=== PATIENT | female | born 1980 | race Caucasian/White ===

== ENCOUNTER 2020-08-13 19:11 | Emergency (ER) | payer OTHER, SELFPAY ==
--- NOTE | ~2020-08-13 | XR_ITS ---
EXAMINATION: XR KNEE, LEFT CLINICAL INFORMATION: Fall with injury COMPARISON: None TECHNIQUE: Four views of the left knee. FINDINGS: Osseous alignment is anatomic. No acute fracture is seen. Joint spaces appear maintained. No significant effusion. XR/XR knee LT 4V IMPRESSION: No acute findings identified.
--- NOTE | ~2020-08-13 | XR_ITS ---
EXAMINATION: XR WRIST, RIGHT CLINICAL INFORMATION: Fall with injury COMPARISON: None TECHNIQUE: Four views of the right wrist. FINDINGS: Osseous alignment is anatomic. No acute fracture is seen. No significant focal soft tissue abnormality identified. XR/XR wrist RT 2V IMPRESSION: No acute findings identified.
[2020-08-13 20:09] VITALS: BP 115/77; PULSE 94; RESP 20; TEMP 37; O2SAT 98; BMI 32.9
[2020-08-13] MEDS: Acetaminophen 325 MG TABLET 650 MG PO (22:41)
--- NOTE | 2020-08-13 22:43 | PC.NURSE ---
Pt ambulating to the desk, requesting medication for pain to left armpit and a hot pack. Pt medicated with Tylenol per request, provided with a hot pack.
[2020-08-14] MEDS: Lidocaine HCl 2 % MPF 5 ML VIAL SUBCUT (00:27)
--- NOTE | 2020-08-14 01:13 | ED_ITS ---
HPI - Skin/Abscess/Foreign Bdy General Chief complaint: Skin/Abscess/Foreign Body Stated complaint: infection Source: patient Mode of arrival: ambulatory Limitations: no limitations History of Present Illness HPI narrative: 40-year-old female presents with abscess under the left axilla, reports right wrist and left knee pain as well. She does not describe any fevers or chills, but states it is really difficult for her to lower her arm because of abscesses. complaint: abscess/boil Onset (ago): day(s) Tetanus up to date: no Severity: moderate Severity scale (1-10): 7 Quality: aching and constant Pain Consistency: constant Relieving factors: none Exacerbating factors: movement Context: none Associated symptoms: denies other symptoms Treatments prior to arrival: attempted to drain pus at home Related Data Previous Rx's Medication Instructions Recorded doxycycline monohydrate 100 mg PO BID 10 Days #20 cap 08/14/20 oxycodone 5 mg PO Q8H PRN #7 cap 08/14/20 Allergies Allergy/AdvReac Type Severity Reaction Status Date / Time codeine [CODEINE] Allergy Unknown UNKNOWN Unverified 08/13/20 20:14 Review of Systems Review of Systems: Constitutional: No Fever, No Chills ENT/Mouth: No Ear Pain, No Hoarseness, No sore throat Eyes: No Eye Pain, No Swelling, No Redness, No Foreign Body Cardiovascular: No Chest Pain, No SOB Respiratory: No Cough, No Dyspnea Gastrointestinal: No Nausea, No Vomiting, No Diarrhea, No abdominal Pain Genitourinary: No Dysuria, No Hematuria Musculoskeletal: positive right wrist and left knee pain, No Myalgias, No Joint Swelling Skin: Positive abscess to the left axilla with cellulitis, No Skin lacerations, No rash Neuro: No Weakness, No Numbness, No Paresthesias, No Loss of Consciousness, No Dizziness, No Headache Psych: No Anxiety/Panic, No Depression Heme/Lymph: no easy bruising, no Lymphadenopathy Endocrine: No Polyuria, No Polydipsia Yes all other systems are reviewed and are negative PMFSH Past Medical History Attestation statement: The following information was validated with the patient. Source: old records reviewed Medical History (Updated 08/14/20 @ 01:22 by Komal Howard NP) No known health problems Social History Social History Smoked in Last 30 Days: No Advance Directives: No Advance Directives Information Provided: No Physical Exam Vital Signs: Vital Signs: Last Vital Signs Temp 98.6 F 08/13/20 20:09 Pulse 94 08/13/20 20:09 Resp 20 08/13/20 20:09 BP 115/77 08/13/20 20:09 Pulse Ox 98 08/13/20 20:09 Body Mass Index 32.9 Appearance: Alert. Oriented X3. No acute distress. Eyes: Pupils equal, round and reactive to light. ENT: Pharynx normal. Neck: Normal inspection. Neck supple. CVS: Normal heart rate and rhythm. Pulses normal. Respiratory: No respiratory distress. Breath sounds normal. Abdomen: Soft and nontender. Skin: Approximately 5 cm area of induration and cellulitis to the left axilla, Skin warm and dry. Normal skin color. Normal skin turgor. Extremities: No lower extremity edema. Neuro: No motor deficit. No sensory deficit. Course Course Course Narrative: 40-year-old female presents with cellulitis and abscess under the left axilla. Also has incidental complaints of right wrist and right knee pain. Please refer to procedure note for full details. Prepped and draped in sterile fashion, 2 incisions made to the left axilla with positive purulent drainage. Dr Luna's in to evaluate, as patient does have additional indurated areas, under ultrasound guidance area consistent with cellulitis and no further fluid pockets are visualized for drainage. Will treat doxycycline p.o.. X-rays to the right wrist and left knee are negative for acute findings. Patient verbalized understanding of and agrees to plan of care discharge home. Procedures Abscess I/D Site: upper extremity Side (if applicable): left Local Anesthetic: lidocaine 2% Amount of anesthesia used (mL): 4 Technique: incised with blade and ultrasound guided Amount of fluid expressed (mL): 5 Sent for culture/gram staining?: No Irrigation: No Packing used?: none MDM - Skin/Abscess/Foreign Bdy Differential Diagnosis Differential diagnosis: Likely abscess of skin or subcutaneous tissue and cellulitis Medical Records Attestation: I reviewed the patient's medical records. Imaging Data Wrist and knee x-ray: Attestation: I personally reviewed and interpreted this imaging study as follows: Radiologist's impression: EXAMINATION: XR KNEE, LEFT CLINICAL INFORMATION: Fall with injury COMPARISON: None TECHNIQUE: Four views of the left knee. FINDINGS: Osseous alignment is anatomic. No acute fracture is seen. Joint spaces appear maintained. No significant effusion. XR/XR knee LT 4V IMPRESSION: No acute findings identified. EXAMINATION: XR WRIST, RIGHT CLINICAL INFORMATION: Fall with injury COMPARISON: None TECHNIQUE: Four views of the right wrist. FINDINGS: Osseous alignment is anatomic. No acute fracture is seen. No significant focal soft tissue abnormality identified. XR/XR wrist RT 2V IMPRESSION: No acute findings identified Discharge Plan Discharge Clinical Impression: Suppurative hidradenitis, Incisional abscess Cellulitis Qualifiers: Site of cellulitis: extremity Site of cellulitis of extremity: axilla Laterality: left Qualified Code(s): L03.112 - Cellulitis of left axilla Abscess of skin or subcutaneous tissue Qualifiers: Site of cutaneous abscess: extremity Site of cutaneous abscess of extremity: axilla Laterality: left Qualified Code(s): L02.412 - Cutaneous abscess of left axilla Patient Disposition: Home, Self-Care Instructions: Cellulitis (ED), Abscess (ED), Abscess Incision and Drainage (DC) , Hidradenitis Suppurativa (ED) Additional Instructions: You were evaluated for swelling and pain in the left axilla. We drained 2 pus pockets. Please keep the Steri-Strips in place. They will fall off on their own. Please take antibiotics as directed. We prescribed tramadol for pain management. This medication is a narcotic and has high risk for addiction and abuse. Do not drive or operate machinery while taking this medication. X-ray of the wrist is negative for acute findings or fracture, x-ray of the knee is negative for acute findings fracture or effusion. Thank you for choosing this emergency department for evaluation. Please follow-up with primary care physician as needed. Return to the emergency department for any new, concerning, or worsening symptoms. Prescriptions: New doxycycline monohydrate 100 mg capsule 100 mg PO BID 10 Days Qty: 20 RF: 0 oxycodone 5 mg capsule 5 mg PO Q8H PRN (Reason: pain) Qty: 7 RF: 0 Interventions: ED Discharge Assessment Last Done: 08/14/20 01:40 Discharge Date/Time: 08/14/20 01:43
== END 2020-08-14 01:43 | disposition home or self-care (01) ==
PROVIDERS: Emergency Provider Emergency Medicine
DX: L73.2 Hidradenitis suppurativa (principal); L02.412 Cutaneous abscess of left axilla; L03.112 Cellulitis of left axilla; M25.531 Pain in right wrist; M25.562 Pain in left knee
CPT/HCPCS: 10061; 73100; 73564; 90471; 90715; 99284

== ENCOUNTER 2021-03-13 06:19 | Emergency (ER) | payer OTHER, SELFPAY ==
--- NOTE | ~2021-03-13 | XR_ITS ---
EXAMINATION: XR FOOT, LEFT CLINICAL INFORMATION: Swelling COMPARISON: None TECHNIQUE: AP, lateral, and oblique views of the left foot. FINDINGS: The bones and soft tissues are normal. No fracture. Alignment is anatomic. Joint spaces are maintained. XR/XR foot LT min 3V IMPRESSION: Normal left foot.
[2021-03-13 07:01] VITALS: BP 92/61; PULSE 71; RESP 16; TEMP 36.6; O2SAT 98; BMI 31.1
--- NOTE | 2021-03-13 07:18 | ED.EXTPRO ---
HPI - Extremity Problem General Chief complaint: Extremity Problem Stated complaint: swollen l left Time Seen by Provider: 03/13/21 06:53 Source: patient Mode of arrival: ambulatory Limitations: no limitations History of Present Illness MD Complaint: extremity pain and extremity swelling Onset (ago): day(s) (3) Pain Consistency: other (improving) Location: left and other (foot) Quality: aching Radiation: none Relieving factors: immobilization and rest Exacerbating factors: weight bearing and walking Associated symptoms: other (skin looks red) Context: other (outside a lot unsure if she got bit by insect, denies trauma) Related Data Previous Rx's Medication Instructions Recorded doxycycline monohydrate 100 mg 100 mg PO BID 10 Days #20 cap 08/14/20 capsule oxycodone 5 mg capsule 5 mg PO Q8H PRN #7 cap 08/14/20 cephalexin 500 mg capsule 500 mg PO QID 7 Days #28 cap 03/13/21 Allergies Allergy/AdvReac Type Severity Reaction Status Date / Time codeine [CODEINE] Allergy Unknown UNKNOWN Unverified 08/13/20 20:14 Review of Systems Review of Systems: Constitutional : No Fever, No Chills ENT/Mouth : No Ear Pain, No Hoarseness, No sore throat Eyes: No Eye Pain, No Swelling, No Redness, No Foreign Body Cardiovascular : No Chest Pain, No SOB Respiratory : No Cough, No Dyspnea Gastrointestinal : No Nausea, No Vomiting, No Diarrhea, No abdominal Pain Genitourinary : No Dysuria, No Hematuria Musculoskeletal : positive joint pain, No Myalgias, pos Joint Swelling Skin : No Skin lacerations, pos rash Neuro : No Weakness, No Numbness, No Loss of Consciousness, No Dizziness, No Headache PMFSH Past Medical History Attestation statement: The following information was validated with the patient. Medical History No known health problems Social History Social History (Updated 03/13/21 @ 07:21 by Pamlea Morse DO) Patient Tobacco Use Status: Current everyday Tobacco user Advance Directives: No Advance Directives Information Provided: Yes Patient : No Physical Exam Vital Signs: Vital Signs: Last Vital Signs Temp 97.8 F 03/13/21 07:01 Pulse 71 03/13/21 07:01 Resp 16 03/13/21 07:01 BP 92/61 03/13/21 07:01 Pulse Ox 98 03/13/21 07:01 Body Mass Index 31.1 Appearance: Alert. Oriented X3. No acute distress. Eyes: Pupils equal, round and reactive to light. ENT: Pharynx normal. Neck: Normal inspection. Neck supple. CVS: Normal heart rate and rhythm. Pulses normal. Respiratory: No respiratory distress. Breath sounds normal. Abdomen: Soft and non-tender. Skin: Skin warm and dry. Normal skin color. Extremities: L foot swelling on dorsum mild with mild faint erythema, there is an excoriated insect bite but no fluctuance / mass / drainage noted. NV intact, full ROM of ankle without pain, no calf pain or swelling Neuro: Oriented X 3. No motor deficit. No sensory deficit. Course Course Course Narrative: negative xrays MDM - Extremity (Nontraumatic) MDM Narrative Medical decision making narrative: 40 yo female with no sig PMH here with L foot pain and swelling that has improved. She has been outside a lot and initially the foot was very swollen ? trauma vs insect bite with localized reaction. She is NV intact very mild erythema consistent with cellulitis. She has no systemic symptoms and full ROM of joint doubt septic joint at this time. Xrays and PO cephalexin ordered. Discharge Plan Discharge Clinical Impression: Cellulitis Qualifiers: Site of cellulitis: extremity Site of cellulitis of extremity: lower extremity Laterality: left Qualified Code(s): L03.116 - Cellulitis of left lower limb Patient Disposition: Home, Self-Care Instructions: Cellulitis (ED) Additional Instructions: return to ED for any worsening symptoms or concerns xrays negative for fracture Prescriptions: New cephalexin 500 mg capsule 500 mg PO QID 7 Days Qty: 28 RF: 0 No Action doxycycline monohydrate 100 mg capsule 100 mg PO BID 10 Days Qty: 20 RF: 0 oxycodone 5 mg capsule 5 mg PO Q8H PRN (Reason: pain) Qty: 7 RF: 0 Stand Alone Forms: Work/School Release
[2021-03-13] MEDS: cephALEXin 500 MG CAPSULE PO (07:24)
--- NOTE | 2021-03-13 07:45 | PC.NURSE ---
pt alert and oriented, vss, pt states her right foot has been swollen for two days now, she denies any injuries or falls. denies fever or chills, no sob/dizziness/headache. no other symptoms reported.
[2021-03-13 08:20] VITALS: BP 126/79; PULSE 73; RESP 16; TEMP 36.8; O2SAT 99
--- NOTE | 2021-03-13 08:20 | PC.NURSE ---
pt's x-ray clear. pt medically cleared for discharge.
== END 2021-03-13 08:30 | disposition home or self-care (01) ==
PROVIDERS: Emergency Provider Emergency Medicine; PCP Internal Medicine
DX: L03.116 Cellulitis of left lower limb (principal); M79.672 Pain in left foot; Z79.899 Other long term (current) drug therapy
CPT/HCPCS: 73630; 99283; 99284

== ENCOUNTER 2021-10-25 02:38 | Emergency (ER) | payer OTHER, SELFPAY ==
--- NOTE | ~2021-10-25 | XR_ITS ---
EXAMINATION: XR HIP, LEFT CLINICAL INFORMATION: Unable to bear weight COMPARISON: None TECHNIQUE: Two views of the left hip. FINDINGS: Visualized portion of the proximal left femur demonstrate no fracture. Left femoral head is well-seated within the acetabulum. Left femoral acetabular joint space is maintained. The pelvic ring is intact. The right hip is grossly unremarkable. Sacroiliac joints are symmetric. XR/XR hip LT min 2V IMPRESSION: Unremarkable radiographs of the left hip.
[2021-10-25 03:08] VITALS: BP 96/60; PULSE 67; RESP 16; TEMP 36.6; O2SAT 97; BMI 29.2
--- NOTE | 2021-10-25 07:31 | ED.LOWEXIN ---
HPI - Extremity Injury (Lower) General Chief Complaint: Extremity Injury, Lower Stated Complaint: Hip pain; no injury Time Seen by Provider: 10/25/21 07:29 Source: patient and family (Significant other) Mode of arrival: ambulatory Limitations: no limitations History of Present Illness HPI Narrative: 41-year-old female came in for evaluation of left hip pain. Patient was stretching her left leg over her right knee when she had a sudden onset of left hip pain, pain is severe 10/10 described as dull aching pain, pain with movement or bearing weight or try to stretch in left have. Patient did not try any pain medication, pain is constant with no radiation. Declined any trauma or strenuous activity. No fever or chills Related Data Previous Rx's Medication Instructions Recorded doxycycline monohydrate 100 mg 100 mg PO BID 10 Days #20 cap 08/14/20 capsule oxycodone 5 mg capsule 5 mg PO Q8H PRN #7 cap 08/14/20 cephalexin 500 mg capsule 500 mg PO QID 7 Days #28 cap 03/13/21 cyclobenzaprine 10 mg tablet 10 mg PO BEDTIME PRN #10 tab 10/25/21 ibuprofen 600 mg tablet 600 mg PO TID PRN #30 tab 10/25/21 Allergies Allergy/AdvReac Type Severity Reaction Status Date / Time codeine [CODEINE] Allergy Unknown UNKNOWN Unverified 08/13/20 20:14 Review of Systems Review of Systems: All other systems are reviewed and are negative Constitutional: Reports as per HPI and Reports no additional constitutional complaints Eyes: Reports as per HPI and Reports no additional eye complaints Reports system reviewed and no additional complaints, except as documented Cardiovascular: Reports as per HPI and Reports no additional cardiovascular complaints Respiratory: Reports as per HPI and Reports no additional respiratory complaints Gastrointestinal: Reports as per HPI and Reports no additional gastrointestinal complaints Genitourinary: Reports no additional female genitourinary complaints Musculoskeletal: Reports no additional musculoskeletal complaints Skin/Breast: Reports system reviewed and no additional complaints, except as docu Psychiatric: Reports no additional psychiatric complaints Endocrine: Reports no additional endocrine complaints Hematologic/Lymphatic: Reports no additional hematologic/lymphatic complaints Allergic/Immunologic: Reports no additional allergic/immunologic complaints Reports system reviewed and no additional complaints, except as documented and Reports Abnormal speech present [facility] Past Medical History Medical History No known health problems Social History Social History Patient Tobacco Use Status: Current everyday Tobacco user Advance Directives: No Advance Directives Information Provided: No Physical Exam Vital Signs: Vital Signs: Last Vital Signs Temp 97.8 F 10/25/21 03:08 Pulse 67 10/25/21 03:08 Resp 16 10/25/21 03:08 BP 96/60 10/25/21 03:08 Pulse Ox 97 10/25/21 03:08 BMI result Body Mass Index 29.2 Vital signs have been reviewed as appeared to be correct. Blood pressure normal. Heart rate normal. Respiration rate normal. Temperature normal. Oxygen saturation normal. Appearance: Alert. Oriented X3. No acute distress. Head: Normal external exam. Normocephalic. Atraumatic. No Lerma signs noted. No raccoon eyes noted Eyes: PERRLA. EOMI. Conjunctiva and sclera normal. Eyelids normal. ENT: TM's Normal. Pharynx normal. Uvula midline. Moist mucous membranes. No trismus noted. No drooling noted. No muffled voice noted. Neck: Normal inspection. Neck supple. FROM. No adenopathy. Thyroid Normal. No meningeal signs. No neck mass noted. CVS: Normal heart rate and rhythm. Heart sound normal. No murmurs noted. Pulses normal throughout. Respiratory: No respiratory distress. Painless inspiration. Breath sounds normal. No wheezes/rales/rhonchi noted. Chest nontender. No accessory muscle usage noted or decreased air movement noted. Abdomen: Soft and nontender. Bowel sounds normal in all 4 quadrants. No distention noted. No organomegaly noted. No visible injury noted. Back: No CVA tenderness. Full range of motion noted. Skin: Skin warm and dry. Normal skin color. Normal skin turgor. No rashes/lesions/lacerations noted. Extremities: No lower extremity edema. Extremities exhibit normal range of motion. Extremities nontender. Point of tenderness over left inguinal ligament but no step-off, no swelling. Neuro: Oriented X 3. Cranial nerve exam: II-XII are grossly intact No motor deficit. No sensory deficit. Reflexes normal. Course Course Course Narrative: Assessment and plan. 41-year-old female, left inguinal ligament strain, no fracture on the x-ray. Patient feels better with NSAIDs and muscle relaxant. MDM - Extremity Injury (Lower) Imaging Data Left hip x-ray: Attestation: I personally reviewed and interpreted this imaging study as follows: Radiologist's impression: Visualized portion of the proximal left femur demonstrate no fracture. Left femoral head is well-seated within the acetabulum. Left femoral acetabular joint space is maintained. The pelvic ring is intact. The right hip is grossly unremarkable. Sacroiliac joints are symmetric. Discharge Plan Discharge Clinical Impression: Ilio-inguinal strain Patient Disposition: Home, Self-Care Instructions: Muscle Strain (ED) Prescriptions: New cyclobenzaprine 10 mg tablet 10 mg PO BEDTIME PRN (Reason: muscle spasm) Qty: 10 0RF ibuprofen 600 mg tablet 600 mg PO TID PRN (Reason: pain) Qty: 30 0RF No Action doxycycline monohydrate 100 mg capsule 100 mg PO BID 10 Days Qty: 20 0RF oxycodone 5 mg capsule 5 mg PO Q8H PRN (Reason: pain) Qty: 7 0RF cephalexin 500 mg capsule 500 mg PO QID 7 Days Qty: 28 0RF Referrals: Physician,Unknown J [Primary Care Provider] -
[2021-10-25] MEDS: Cyclobenzaprine HCl 10 MG TABLET PO (07:59)
[2021-10-25] MEDS: Ibuprofen 600 MG TABLET PO (08:00)
[2021-10-25] MEDS: oxyCODONE HCl Immed Release 5 MG TABLET PO (09:17)
== END 2021-10-25 09:29 | disposition home or self-care (01) ==
PROVIDERS: Emergency Provider Emergency Medicine
DX: S76.812A Strain of other specified muscles, fascia and tendons at thigh level, left thigh, initial encounter (principal); X50.9XXA Other and unspecified overexertion or strenuous movements or postures, initial encounter; Y93.9 Activity, unspecified; Y92.9 Unspecified place or not applicable; Y99.9 Unspecified external cause status
CPT/HCPCS: 73502; 99283

== ENCOUNTER 2022-03-26 21:23 | Emergency (ER) | payer OTHER, SELFPAY ==
[2022-03-26 21:38] VITALS: BP 102/66; PULSE 74; RESP 20; TEMP 36.9; O2SAT 98; BMI 27.4
--- NOTE | 2022-03-26 22:38 | ED.GENADULT ---
HPI - General Adult General Chief complaint: General Medical Stated complaint: Stye in eye Time Seen by Provider: 03/26/22 22:16 Source: patient Mode of arrival: ambulatory Limitations: no limitations History of Present Illness HPI narrative: This is a 41-year-old female presenting to the emergency department with complaints of painful stye to the left upper eyelid. Patient tells me that this has been going on for a week or so progressively worsening, she tells me this morning she noted a white head on the stat eye and she tried to pop it, she reports some discomfort to the area. She tells me she gets these repetitively. She reports that she has seen an eye doctor in the past for this. She denies fevers, chills, chest pain, shortness of breath, painful eye movements, vision changes, headache, dizziness, weakness. Related Data Previous Rx's Medication Instructions Recorded doxycycline monohydrate 100 mg 100 mg PO BID 10 days #20 caps 08/14/20 capsule oxycodone 5 mg capsule 5 mg PO Q8H PRN pain #7 caps 08/14/20 cephalexin 500 mg capsule 500 mg PO QID 7 days #28 caps 03/13/21 cyclobenzaprine 10 mg tablet 10 mg PO BEDTIME PRN muscle spasm 10/25/21 #10 tabs ibuprofen 600 mg tablet 600 mg PO TID PRN pain #30 tabs 10/25/21 erythromycin 5 mg/gram (0.5 %) eye 1 appl ophthalmic-Left DAILY #3.5 03/26/22 ointment grams Allergies Allergy/AdvReac Type Severity Reaction Status Date / Time codeine [CODEINE] Allergy Unknown Hives Verified 03/26/22 21:44 Review of Systems Review of Systems: Constitutional : No Weight loss, No Fever, No Chills, No Fatigue, No Malaise ENT/Mouth : No sore throat, No Rhinorrhea, + Stye Eyes: No Eye Pain, No Swelling, No Redness Cardiovascular : No Chest Pain, No SOB, No Dyspnea on Exertion, No Orthopnea, No Edema, No Palpitations Respiratory : No Cough, No Sputum, No Wheezing Gastrointestinal : No Nausea, No Vomiting, No Diarrhea, No Constipation, No abdominal Pain, No Hematochezia, No Melena Genitourinary : No Dysuria, No Urinary Frequency, No Hematuria, Musculoskeletal : No joint pain, No Myalgias, No Joint Swelling Skin : No Skin Lesions, No rash Neuro : No Weakness, No Numbness, No Dizziness, No Headache All other systems reviewed and are negative Yes all other systems are reviewed and are negative [facility] Past Medical History Attestation statement: The following information was validated with the patient. Source: old records reviewed and nursing notes reviewed Medical History No known health problems Social History Social History Patient Tobacco Use Status: Current everyday Tobacco user Advance Directives: No Advance Directives Information Provided: No Patient : No Physical Exam ED Vital Signs: Vital Signs - 24 hr 03/26/22 21:38 Temperature 98.5 F Pulse Rate 74 Respiratory Rate 20 Blood Pressure 102/66 Pulse Oximetry 98 Oxygen Delivery Method Room Air BMI result Body Mass Index 27.4 Vital signs stable Appearance: Alert.? Oriented X3.? No acute distress.? Head: Normocephalic, atraumatic, no step-offs or deformities Eyes: Pupils equal, round and reactive to light.?+ external hordeolum to left upper eyelid. EOMI pain free. CVS: Normal heart rate and rhythm.? Pulses normal.? Respiratory: No respiratory distress.? Breath sounds normal.? Abdomen: Soft and nontender.? Skin: Skin warm and dry.? Normal skin color.? Normal skin turgor.? Extremities: No lower extremity edema.? No calf ttp. 5/5 strength to bilateral upper and lower extremities Neuro: Oriented X 3.? No motor deficit.? No sensory deficit. Course Reevaluation(s) Reevaluation #1: At this time patient will be discharged home with erythromycin ointment, advised to return with new or worsening symptoms. Educated on worrisome signs and symptoms and when to return. Advised to follow-up with the eye doctor if this continues. Comfortable discharge home with prompt PCP and Ophthalmology follow-up of necessary Time: 22:41 Medical Decision Making [facility] Narrative Medical decision making narrative: [id number] 41-year-old female presents with stye to the left upper eyelid. Reports she gets these often. Denies any pain with eye movement, eye pain, vision changes, headache or dizziness. Physical examination with hordeolum to the left upper eye. Extraocular movements intact him pain-free, no nystagmus. Pupils equal round reactive to light. Likely hordeolum, unlikely chalazion. No signs of wet macular degeneration, acute angle closure glaucoma, orbital or periorbital cellulitis. No signs of foreign body. Plan at this time is to obtain visual acuity. Medical Records Medical records reviewed: Yes I reviewed the patient's medical records. Lab Data Lab results reviewed: Yes I reviewed the patient's lab results. Critical Care Time Critical Care Time Critical Care Time: No Discharge Plan Discharge Clinical Impression: Hordeolum Patient Disposition: Home, Self-Care Instructions: Gunner (ED) Additional Instructions: Take your medications as prescribed. If you were prescribed antibiotics today, it is important that you take your medication to their entirety, do not skip any doses, do not finish them early. Follow-up with your primary care provider this week. Follow-up with eye doctor if needed Return to the emergency department with new or worsening symptoms. Such as fevers, chills, chest pain, shortness of breath, nausea, vomiting, dizziness, headache, vision changes, lethargy, or redness around eye, painful eye movements, pain dye, changes in vision or blurred vision, double vision In case of emergency call 911 Apply warm compresses to the area. Apply antibiotic as prescribed. Please throw away all makeup that you have used on your eyes. Prescriptions: New erythromycin 5 mg/gram (0.5 %) ointment 1 appl ophthalmic-Left DAILY Qty: 3.5 0RF No Action doxycycline monohydrate 100 mg capsule 100 mg PO BID 10 Days Qty: 20 0RF oxycodone 5 mg capsule 5 mg PO Q8H PRN (Reason: pain) Qty: 7 0RF cephalexin 500 mg capsule 500 mg PO QID 7 Days Qty: 28 0RF cyclobenzaprine 10 mg tablet 10 mg PO BEDTIME PRN (Reason: muscle spasm) Qty: 10 0RF ibuprofen 600 mg tablet 600 mg PO TID PRN (Reason: pain) Qty: 30 0RF Referrals: Bethany Moise MD [Primary Care Provider] - 2 days Stand Alone Forms: Work/School Release Interventions: ED Discharge Assessment Last Done: 03/26/22 22:51 Discharge Date/Time: 03/26/22 23:00
== END 2022-03-26 23:00 | disposition home or self-care (01) ==
PROVIDERS: Emergency Provider Emergency Medicine; PCP Internal Medicine
DX: H00.014 Hordeolum externum left upper eyelid (principal); Z79.899 Other long term (current) drug therapy; F17.200 Nicotine dependence, unspecified, uncomplicated; Z71.6 Tobacco abuse counseling
CPT/HCPCS: 99282; 99283

== ENCOUNTER 2022-11-09 13:26 | Emergency (ER) | payer OTHER, SELFPAY | END 2022-11-09 14:06 | disposition left against medical advice (07) | PROVIDERS: Emergency Provider Emergency Medicine; PCP Internal Medicine | DX: R10.9 Unspecified abdominal pain (principal) ==

== ENCOUNTER 2023-03-19 22:58 | Emergency (ER) | payer OTHER, SELFPAY ==
[2023-03-19 23:18] VITALS: BP 102/63; PULSE 88; RESP 22; TEMP 37.2; O2SAT 95; BMI 27.1
[2023-03-19 23:58] VITALS: PULSE 84; RESP 16; O2SAT 98; O2SAT 99
--- NOTE | 2023-03-20 00:31 | ED.URI ---
HPI - URI/Sore Throat General Chief Complaint: Upper Respiratory Symptoms Stated Complaint: Difficulty breathing Time Seen by Provider: 03/19/23 23:57 Source: patient Mode of arrival: ambulatory Limitations: no limitations History of Present Illness HPI Narrative: a 42-year-old female with history of asthma, cigarette smoking came in for evaluation of difficulty breathing, coughing with phlegm time 1 week, patient been using her bronchodilator with no relief of her symptoms, son last week had a flu. No recent travel, no lower extremity swelling tenderness, no history of pulmonary embolism. Related Data Previous Rx's Medication Instructions Recorded doxycycline monohydrate 100 mg 100 mg PO BID 10 days #20 caps 08/14/20 capsule oxycodone 5 mg capsule 5 mg PO Q8H PRN pain #7 caps 08/14/20 cephalexin 500 mg capsule 500 mg PO QID 7 days #28 caps 03/13/21 cyclobenzaprine 10 mg tablet 10 mg PO BEDTIME PRN muscle spasm 10/25/21 #10 tabs ibuprofen 600 mg tablet 600 mg PO TID PRN pain #30 tabs 10/25/21 erythromycin 5 mg/gram (0.5 %) eye 1 appl ophthalmic-Left DAILY #3.5 03/26/22 ointment grams albuterol sulfate 90 mcg/actuation 2 puff inhalation Q4-6H PRN 03/20/23 aerosol inhaler shortness of breath or wheezing #8.5 grams azithromycin 500 mg tablet 500 mg PO DAILY 5 days #5 tabs 03/20/23 (Zithromax) prednisone 20 mg tablet 20 mg PO BID #10 tabs 03/20/23 Allergies Allergy/AdvReac Type Severity Reaction Status Date / Time codeine [CODEINE] Allergy Unknown Hives Verified 03/26/22 21:44 Review of Systems Review of Systems: All other systems are reviewed and are negative Constitutional: Reports as per HPI and Reports no additional constitutional complaints Eyes: Reports as per HPI and Reports no additional eye complaints Reports system reviewed and no additional complaints, except as documented Cardiovascular: Reports as per HPI and Reports no additional cardiovascular complaints Respiratory: Reports as per HPI and Reports no additional respiratory complaints Gastrointestinal: Reports as per HPI and Reports no additional gastrointestinal complaints Genitourinary: Reports no additional female genitourinary complaints Musculoskeletal: Reports no additional musculoskeletal complaints Skin/Breast: Reports system reviewed and no additional complaints, except as docu Psychiatric: Reports no additional psychiatric complaints Endocrine: Reports no additional endocrine complaints Hematologic/Lymphatic: Reports no additional hematologic/lymphatic complaints Allergic/Immunologic: Reports no additional allergic/immunologic complaints Reports system reviewed and no additional complaints, except as documented and Reports Abnormal speech present [facility] Past Medical History Medical History No known health problems Social History Social History Patient Tobacco Use Status: Current everyday Tobacco user Advance Directives: No Advance Directives Information Provided: No Patient : No Physical Exam Vital Signs: Vital Signs: Last Vital Signs Temp 99.0 F 03/19/23 23:18 Pulse 84 03/19/23 23:58 Resp 16 03/19/23 23:58 BP 102/63 03/19/23 23:18 Pulse Ox 98 03/19/23 23:58 O2 Del Method Room Air 03/19/23 23:58 BMI result Body Mass Index 27.1 Vital signs have been reviewed and appear to be correct. Blood pressure elevated. Heart rate normal. Respiratory rate normal. Temperature normal. Oxygen saturation normal. Appearance: Alert. Oriented X3. No acute distress. Head: Normal external exam. Normocephalic. Atraumatic. No Lerma signs noted. No raccoon eyes noted Eyes: PERRLA. EOMI. Conjunctiva and sclera normal. Eyelids normal. ENT: TM's Normal. Pharynx normal. Uvula midline. Moist mucous membranes. No trismus noted. No drooling noted. No muffled voice noted. Neck: Normal inspection. Neck supple. FROM. No adenopathy. Thyroid Normal. No meningeal signs. No neck mass noted. CVS: Normal heart rate and rhythm. Heart sound normal. No murmurs noted. Pulses normal throughout. Respiratory: No respiratory distress. Painless inspiration. Breath sounds normal. Expiratory wheezing with prolonged expiration and decreased breathing sounds bilaterally. Chest nontender. No accessory muscle usage noted or decreased air movement noted. Abdomen: Soft and nontender. Bowel sounds normal in all 4 quadrants. No distention noted. No organomegaly noted. No visible injury noted. Back: No CVA tenderness. Full range of motion noted. Skin: Skin warm and dry. Normal skin color. Normal skin turgor. No rashes/lesions/lacerations noted. Extremities: No lower extremity edema. Extremities exhibit normal range of motion. Extremities nontender. Neuro: Oriented X 3. Cranial nerve exam: II-XII are grossly intact No motor deficit. No sensory deficit. Reflexes normal. Course Reevaluation(s) Reevaluation #1: A cigarette smoker with history asthma exam is consistent with acute bronchitis and chest x-ray raising concern of possible early pneumonia. Will start the patient on bronchodilator/prednisone/ zithromax. Time: 00:34 Medical Decision Making Differential Diagnosis Differential Diagnoses: The differential diagnosis associated with the presentation includes ( Acute bronchitis, pneumonia, viral upper respiratory infection, pneumothorax, pleural effusion.) Admission/Observation Consideration of admission/observation: Escalation of care including admission/observation considered Lab Data MDM Lab Attestation statement: I reviewed the patient's lab results. Labs: Lab Results 03/19/23 Range/Units 23:30 COVID-19 (FELA) Negative (Negative) COVID-19 Clin Com See Note Influenza Type A (STEVIE) Negative (Negative) Influenza Type B (STEVIE) Negative (Negative) Influenza A & B Note See Note Independent Interpretation I performed an independent interpretation of an: Plain X-Ray ( Chest:Right lower lung field increased markings. Consider bronchitis or developing pneumonia. ) Radiology Impression Discussion of test interpretation with radiology: I have reviewed the radiologist's reading. Chronic Conditions Patient?s care impacted by: Other ( Cigarette smoking) Discharge Plan Discharge Clinical Impression: Bronchitis Patient Disposition: Home, Self-Care Instructions: Acute Bronchitis (ED) Prescriptions: New azithromycin [Zithromax] 500 mg tablet 500 mg PO DAILY 5 Days Qty: 5 0RF prednisone 20 mg tablet 20 mg PO BID Qty: 10 0RF albuterol sulfate 90 mcg/actuation HFA aerosol inhaler 2 puff inhalation Q4-6H PRN (Reason: shortness of breath or wheezing) Qty: 8.5 0RF No Action doxycycline monohydrate 100 mg capsule 100 mg PO BID 10 Days Qty: 20 0RF oxycodone 5 mg capsule 5 mg PO Q8H PRN (Reason: pain) Qty: 7 0RF cephalexin 500 mg capsule 500 mg PO QID 7 Days Qty: 28 0RF cyclobenzaprine 10 mg tablet 10 mg PO BEDTIME PRN (Reason: muscle spasm) Qty: 10 0RF ibuprofen 600 mg tablet 600 mg PO TID PRN (Reason: pain) Qty: 30 0RF erythromycin 5 mg/gram (0.5 %) ointment 1 appl ophthalmic-Left DAILY Qty: 3.5 0RF
[2023-03-20 00:52] VITALS: PULSE 74; RESP 16; O2SAT 97
== END 2023-03-20 01:40 | disposition home or self-care (01) ==
PROVIDERS: Emergency Provider Emergency Medicine
DX: J40 Bronchitis, not specified as acute or chronic (principal); F17.210 Nicotine dependence, cigarettes, uncomplicated; Z11.52 Encounter for screening for COVID-19
CPT/HCPCS: 71046; 87502; 87635; 94640; 99284

== ENCOUNTER 2023-05-07 20:40 | Emergency (ER) | payer OTHER, SELFPAY ==
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
--- NOTE | ~2023-05-07 | XR_ITS ---
EXAMINATION: XR knee RT 4V, XR chest 1V CLINICAL INFORMATION: Reason for Exam fall COMPARISON: None. TECHNIQUE: 4 views of the right knee and single frontal view of the chest were obtained. FINDINGS: RIGHT KNEE: The bony alignments are intact. The cortices are intact. Articular margins, joint space appear unremarkable. No evidence of any joint effusion. CHEST: Both lung cottrell are symmetrically expanded and appear clear. The cardiomediastinal silhouette is within normal limit. No evidence of any pleural effusion or pneumothorax. XR/XR knee RT 4V IMPRESSION: 1. No radiographic evidence of any acute osseous or articular or soft tissue injury. 2. Unremarkable radiographic appearance of the chest.
[2023-05-07 20:41] VITALS: BP 114/81; PULSE 109; RESP 18; TEMP 36.6; O2SAT 100; BMI 26.5
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
--- NOTE | 2023-05-07 22:21 | ECG_ITS ---
Test Reason : CHEST PAIN Blood Pressure : / mmHG Vent. Rate : 087 BPM Atrial Rate : 087 BPM P-R Int : 130 ms QRS Dur : 080 ms QT Int : 386 ms P-R-T Axes : 073 073 056 degrees QTc Int : 464 ms Normal sinus rhythm Normal ECG When compared with ECG of 11-APR-2019 19:10, QT has lengthened Referred By: Emiliana Jasmine Electronically Signed By:VIRGILIO LEE MD
[2023-05-07] MEDS: Ibuprofen 600 MG TABLET PO (22:27)
[2023-05-07] MEDS: oxyCODONE HCl Immed Release 5 MG TABLET PO (22:27)
[2023-05-07 23:30] LABS: Troponin-I High Sensitivity < 2.7 ng/L (<3.5-17.0)
== END 2023-05-08 01:01 | disposition home or self-care (01) ==
PROVIDERS: Emergency Provider Emergency Medicine; PCP Internal Medicine
DX: S20.214A Contusion of middle front wall of thorax, initial encounter (principal); W17.89XA Other fall from one level to another, initial encounter; F17.200 Nicotine dependence, unspecified, uncomplicated; Y93.89 Activity, other specified; Y92.018 Other place in single-family (private) house as the place of occurrence of the external cause; Y99.9 Unspecified external cause status
CPT/HCPCS: 36415; 71045; 71110; 73564; 84484; 93005; 99283; 99285

== ENCOUNTER 2025-03-01 06:47 | Emergency (ER) | payer OTHER, SELFPAY ==
--- NOTE | ~2025-03-01 | XR_ITS ---
EXAMINATION: XR KNEE, RIGHT CLINICAL INFORMATION: dislocation this am, back in place pain COMPARISON: 05/07/2023. TECHNIQUE: AP and lateral views of the right knee. FINDINGS: No definite fracture, dislocation, or suspicious bone lesion. There is no malalignment or persistent dislocation. Joint spaces are preserved. There is no significant joint effusion. There is no soft tissue abnormality. XR/XR knee RT 2V IMPRESSION: Normal right knee radiographs. Electronically signed by: Pancho Gonzales MD 03/01/2025 08:18 AM EDT
--- NOTE | ~2025-03-01 | XR_ITS ---
EXAMINATION: XR CHEST 2 VIEWS HISTORY: cough COMPARISON: Comparison is made with the prior examination dated 05/07/2023. FINDINGS: PA and lateral views of the chest are submitted. The lungs are expanded and clear. There is no pleural effusion, pneumothorax, or pulmonary vascular congestion. The heart is normal in size. The bones are intact. XR/XR chest 2V IMPRESSION: No acute cardiopulmonary abnormality. Electronically signed by: Gustavo Villagran MD 03/01/2025 09:07 AM EDT
[2025-03-01 06:48] VITALS: PULSE 98; RESP 16; TEMP 36.2; O2SAT 97; BMI 30.5
--- NOTE | 2025-03-01 07:24 | ED_ITS ---
HPI - Extremity Problem General Chief complaint: Extremity Problem Stated complaint: knee pain Time Seen by Provider: 03/01/25 07:11 Source: patient, RN notes reviewed and old records reviewed Mode of arrival: ambulatory Limitations: no limitations History of Present Illness ED Provider: LIDIA Baxter HPI Narrative: 44-year-old female with medical history of GRIER presents to the ED due to right knee pain. Patient states the right knee has ?popped out of place? 3 times in the last 2 weeks. Patient states last night while lying in bed she went to stand up in the right knee subluxed causing her immediate pain. Patient states the knee was at a place for approximately 20 minutes before it is back into place on its own. Patient reports taking ibuprofen at 3am with minimal relief. Additionally, patient states she has had a productive cough for approximately 10 days with body aches and sore throat. She states symptoms have been improving over the past 2 days. Smokes .5 pack of cigarettes per day. Related Data Previous Rx's ?Medication ?Instructions ?Recorded doxycycline monohydrate 100 mg 100 mg PO BID 10 days # 20 caps 08/14/20 capsule oxycodone 5 mg capsule 5 mg PO Q8H PRN pain #7 caps 08/14/20 cephalexin 500 mg capsule 500 mg PO QID 7 days #28 cap s 03/13/21 cyclobenzaprine 10 mg tablet 10 mg PO BEDTIME PRN musc le spasm 10/25/21 #10 tabs ibuprofen 600 mg tablet 600 mg PO TID PRN pain #30 t abs 10/25/21 erythromycin 5 mg/gram (0.5 %) eye 1 appl ophthalmic-L eft DAILY #3.5 03/26/22 ointment grams albuterol sulfate 90 mcg/actuation 2 puff inhalation Q 4-6H PRN 03/20/23 aerosol inhaler shortness of breath or wheez ing #8.5 grams azithromycin 500 mg tablet 500 mg PO DAILY 5 days #5 t abs 03/20/23 (Zithromax) prednisone 20 mg tablet 20 mg PO BID #10 tabs Allergies Allergy/AdvReac Type Severity Reaction Status Date / Time codeine (CODEINE) Allergy Unknown Hives Verified 03/01/25 06:51 Review of Systems Review of Systems: CONST: Negative for fever, body aches and chills. HENT: Negative for neck pain/stiffness, headache, congestion, sore throat, swelling. EYES: Negative for discharge/pain or vision changes. RESP: Negative for cough/hemoptysis and shortness of breath. CV: Negative chest pain, difficulty breathing, palpitations. ABD: Negative pain, nausea, vomiting. : Negative increase frequency, dysuria, blood in urine or stool. MUSC: Negative for muscle aches, edema. POS R knee pain SKIN: Negative rash, lesions/sores. NEURO: Negative headache, dizziness, weakness. Yes all other systems are reviewed and are negative [facility] Past Medical History Attestation statement: The following information was validated with the patient. Source: old records reviewed and nursing notes reviewed Medical History No known health problems Social History Social History Patient Tobacco Use Status: Current everyday Tobacco user Advance Directives: No Advance Directives Information Provided: No Physical Exam Vital Signs: Vital Signs: Last Vital Signs Temp 97.2 F 03/01/25 09:33 Pulse 98 03/01/25 09:33 Resp 16 03/01/25 09:33 BP 137/89 03/01/25 09:33 Pulse Ox 97 03/01/25 09:33 O2 Del Method Room Air 03/01/25 06:48 BMI result Body Mass Index 30.5 GENERAL APPEARANCE: ?AxOx4, generally well-appearing, no acute distress. HEENT: ?NC, AT. MMM. EOMI, clear conjunctiva, oropharynx clear. NECK: ?Supple without lymphadenopathy.? No stiffness or restricted ROM. HEART:? Normal rate and regular rhythm, normal S1/S1, no m/r/g LUNGS:? CTAB, moving air well. No crackles or wheezes are heard. EXTREMITIES: ?Without cyanosis, clubbing or edema. TTP of R patella, no joint line tenderness, no erythema or edema, popliteal pulses 2+ bilaterally, DP pulses 2+ bilaterally, full ROM the patient does have pain when in flexion, SILT NEUROLOGICAL: ?Grossly nonfocal. Alert and oriented, moving all 4 extremities. Observed to ambulate with slow, steady gait due to pain. Skin: ?Warm and dry without any rash. Medications Administered Discontinued Medications Generic Name Dose Route Start Last Admin Trade Name Jeannie PRN Reason Stop Dose Admin Acetaminophen 975 mg 03/01/25 07:24 03/01/25 08:04 Acetaminophen 325 Mg Tablet PO 03/01/25 07:25 975 mg ONCE ONE Administration Prednisone 40 mg 03/01/25 07:24 03/01/25 08:04 Prednisone 20 Mg Tablet PO 03/01/25 07:25 40 mg ONCE ONE Administration Medical Decision Making Medical Decision Making [facility] Narrative: 44-year-old female with medical history of GRIER presents to the ED due to right knee pain. Patient states the right knee has ?popped out of place? 3 times in the last 2 weeks. Patient reports the knee came out of place last night while trying to get out of bed and was at a place for approximately 20 minutes before self reducing, took ibuprofen with minimal effect. Also experiencing cough with sore throat and body aches for past 10 days but does report symptoms improving over last 2 days. Patient being medicated with 40 mg prednisone, 975 p.o. Tylenol. XR R knee negative for fracture or dislocation- pain has improved after prednisone and tylenol. CXR negative for acute cardiopulmonary process. Viral serology negative. Rapid strep negative. Patient afebrile, without hypoxia, with improved symptoms over last 2 days. No indication of antibiotics. Patient comfortable to go home for self care. I will place referral to ortopedics for further evaluation of frequent subluxing patella. Patient is in agreement with the plan. Differential Diagnosis Differential Diagnoses: The differential diagnosis associated with the presentation includes Knee dislocation Knee fracture Knee strain viral illness COVID Flu pharyngitis Admission/Observation Consideration of admission/observation: Escalation of care including admission/observation considered I considered admission, however patient afebrile, without hypoxia, with normal CXR, does not need admission at this time. Lab Data [facility] Lab Attestation statement: I reviewed the patient's lab results. Labs: Lab Results 03/01/25 03/01/25 Range/Units 09:11 09:12 COVID-19 (FELA) Negative (Negative) COVID-19 Clin Com See Note Influenza Type A (STEVIE) Negative (Negative) Influenza Type B (STEVIE) Negative (Negative) Influenza A & B Note See Note S. pyogenes GrpA STEVIE Negative (Negative) Independent Interpretation I performed an independent interpretation of an: Plain X-Ray Interpretation: I personally interpreted XR R knee which was negative for fracture, dislocation, I agree with the radiologist's interpretation I personally interpreted the CXR which was negative for acute cardiopulmonary processes, I agree with the radiologist's interpretation Radiology Impression Discussion of test interpretation with radiology: I have reviewed the radiologist's reading. Radiologist Impression: XR R knee FINDINGS: No definite fracture, dislocation, or suspicious bone lesion. There is no malalignment or persistent dislocation. Joint spaces are preserved. There is no significant joint effusion. There is no soft tissue abnormality. XR/XR knee RT 2V IMPRESSION: Normal right knee radiographs. Electronically signed by: Pancho Gonzales MD 03/01/2025 08:18 AM EDT Dictated By: Pancho Gonzales MD Signed By: <Electronically signed by Pancho Gonzales MD in OV> 03/01/25 0818 CXR FINDINGS: PA and lateral views of the chest are submitted. The lungs are expanded and clear. There is no pleural effusion, pneumothorax, or pulmonary vascular congestion. The heart is normal in size. The bones are intact. XR/XR chest 2V IMPRESSION: No acute cardiopulmonary abnormality. Electronically signed by: Gustavo Villagran MD 03/01/2025 09:07 AM EDT Dictated By: Gustavo Villagran MD Signed By: <Electronically signed by Gustavo Villagran MD in OV> 03/01/25 0907 External Record Review External record reviewed: Inpatient record, Office record and Outpatient record Chronic Conditions Patient?s care impacted by: Other (GRIER) Social Determinants Patient?s care significantly limited by Social Determinants of Health including: Other Social Determinant of Health Discharge Plan Discharge Clinical Impression: Knee pain Patient Disposition: Home, Self-Care Additional Instructions: You were evaluated in the ED today due to right knee pain, cough. The x-ray of your knee was negative for fracture dislocation. Your chest x-ray was normal. Your viral swabs including COVID and flu were negative today. Your strep swab was negative for strep throat. You were medicated in the department with 975 mg of Tylenol, 40 mg of prednisone, and 30 mg of an intramuscular injection of Toradol for your pain. I have placed a referral to Orthopedics for you for further evaluation of the right knee as it has been consistently coming out of place. You need to call their office, as they will not call you. Please follow up with your primary care doctor to ensure resolution of your symptoms. Please return to the emergency department if you experience fevers over 100.4?, that are not managed with Tylenol, worsening cough, chest pain, shortness of breath, worsening knee pain, or any new/worsening/concerning symptoms. Prescriptions: No Action doxycycline monohydrate 100 mg capsule 100 mg PO BID 10 Days Qty: 20 0RF oxycodone 5 mg capsule 5 mg PO Q8H PRN (Reason: pain) Qty: 7 0RF cephalexin 500 mg capsule 500 mg PO QID 7 Days Qty: 28 0RF cyclobenzaprine 10 mg tablet 10 mg PO BEDTIME PRN (Reason: muscle spasm) Qty: 10 0RF ibuprofen 600 mg tablet 600 mg PO TID PRN (Reason: pain) Qty: 30 0RF erythromycin 5 mg/gram (0.5 %) ointment 1 appl ophthalmic-Left DAILY Qty: 3.5 0RF azithromycin [Zithromax] 500 mg tablet 500 mg PO DAILY 5 Days Qty: 5 0RF prednisone 20 mg tablet 20 mg PO BID Qty: 10 0RF albuterol sulfate 90 mcg/actuation HFA aerosol inhaler 2 puff inhalation Q4-6H PRN (Reason: shortness of breath or wheezing) Qty: 8.5 0RF Referrals: [facility] [place] [facility] [place] [facility] [Provider Group] Interventions: ED Discharge Assessment Last Done: 03/01/25 09:33 Print Language: [place] Islander
--- OUTSIDE RECORDS SUMMARY | 2025-03-01 07:34 | XMS_ITS | Encounter Summary ---
Author Organization [facility] Address [address] [place] [address] Care Team Providers Care Supervisor [employer] Name Role Phone Bethany Moise MD Primary Care Provider [phone] Encounter Details Date Type Department Care Team (Late st Contact Info) Description 10/08/2024 Nurse Triage Adult Medicine [address] [id number] Jayde Chew, RN Social History Tobacco Use Types Packs/Day Years Used Date Smoking Tobacco: Every Day Cigarettes Smokeless Tobacco: Never Alcohol Use Standard Drinks/Week Comments No 0 (1 standard drink = 0.6 oz pur e alcohol) Comments No Sex and Gender Information Value Date Recorded Sex Assigned at Female 07/18/2024 11:19 AM EST Legal Sex Female 9:48 PM EST Gender Identity Female 07/18/2024 11:19 AM EST Sexual Orientation Not on file documented as of this encounter Progress Notes * Jayde Chew RN - 10/08/2024 11:13 AM EDT She has an appointment to see Dr. Moise in the office today at 2:15 pm. She was advised to wear a mask. Reason for Disposition [1] MILD difficulty breathing (e.g., minimal/no SOB at rest, SOB with walking, pulse <100) AND [2] still present when not coughing Answer Assessment - Initial Assessment Questions 1. ONSET: When did the cough begin? 3 days ago 2. SEVERITY: How bad is the cough today? She rates the cough as 8/10 3. SPUTUM: Describe the color of your sputum (e.g., none, dry cough; clear, white, yellow, green) She states the sputum is yellowish/green 4. HEMOPTYSIS: Are you coughing up any blood? If Yes, ask: How much? (e.g., flecks, streaks, tablespoons, etc.) No hemoptysis 5. DIFFICULTY BREATHING: Are you having difficulty breathing? If Yes, ask: How bad is it? (e.g., mild, moderate, severe) - MILD: No SOB at rest, mild SOB with walking, speaks normally in sentences, can lie down, no retractions, pulse < 100. - MODERATE: SOB at rest, SOB with minimal exertion and prefers to sit, cannot lie down flat, speaksin phrases, mild retractions, audible wheezing, pulse 100-120. - SEVERE: Very SOB at rest, speaks in single words, struggling to breathe, sitting hunched forward,retractions, pulse > 120. She reports shortness of breath with activity 6. FEVER: Do you have a fever? If Yes, ask: What is your temperature, how was it measured, and when did it start? No fever. 7. CARDIAC HISTORY: Do you have any history of heart disease? (e.g., heart attack, congestive heart failure) No cardiac history 8. LUNG HISTORY: Do you have any history of lung disease? (e.g., pulmonary embolus, asthma, emphysema) She has a history of asthma 9. PE RISK FACTORS: Do you have a history of blood clots? (or: recent major surgery, recent prolonged travel, bedridden) No PE risk factors 10. OTHER SYMPTOMS: Do you have any other symptoms? (e.g., runny nose, wheezing, chest pain) She is also reporting a sore throat, diarrhea 11. : Is there any chance you are ? When was your last menstrual period? No. Her LMP was 2 weeks ago 12. TRAVEL: Have you traveled out of the country in the last month? (e.g., travel history, exposures) Pt has taken a home Covid test yesterday and it was negative Protocols used: Cough - Acute Upjzahados-G-WX documented in this encounter Plan of Treatment Not on file documented as of this encounter Visit Diagnoses Not on filedocumented in this encounter Care Teams Supervisor [employer] Relationship Specialty Start Date End Date Bethany Moise MD [address] [place] [address] PCP - General 10/06/05 documented as of this encounter
--- OUTSIDE RECORDS SUMMARY | 2025-03-01 07:35 | XMS_ITS ---
Author Name [facility] Organization Unknown Care Team Organization Name Specialty Phone Email Start Date End [facility] Bethany Moise Primary Care 04/20/2022 4
--- OUTSIDE RECORDS SUMMARY | 2025-03-01 07:35 | XMS_ITS | Clinical Summary ---
Author Organization [facility] [address] [place] [address] [place] [phone] Phone Care Team Providers Care Chemical Radiation Technician Name Role Phone Bethany Moise MD Primary Care Provider [phone] Allergies Active Allergy Reactions Criticality Noted Date Comments Codeine Hivdixie 12/25/2009 Medications cetirizine (ZyrTEC) 10 mg tablet Take 1 tablet (10 mg total) by mouth 1 (one) time each day. Active albuterol HFA (PROAIR HFA ; PROVENTIL HFA ; VENTOLIN HFA) 90 mcg/actuation inhaler Inhale 2 puffs by mouth every 4 (four) hours if needed for wheezing (coughing). 8 g 5 Active albuterol 2.5 mg /3 mL (0.083 %) nebulizer solution Take 3 mL (2.5 mg total) by nebulization 4 (four) times a day. 75 mL 2 5 Active fluticasone HFA (FLOVENT HFA) 110 mcg/actuation inhaler Inhale 2 puffs by mouth 2 (two) times a day. 1 each 2 5 Active Active Problems Problem Noted Date Diagnosed Date History of gestational diabetes 12/27/2024 Prediabetes 12/27/2024 Current every day smoker 02/09/2023 Obesity (BMI 30.0-34.9) 06/12/2019 Seasonal allergic rhinitis due to pollen 018 Reactive airway disease 03/28/2018 Fatty liver disease, nonalcoholic 11/04/2011 Encounters Date Type Department Care Team Description 12/25/2024 10:18 AM EDT - 12/25/2024 11:59 PM EDT Hospital Encounter JOSEF Sauer [address] [phone] Acute pain of right knee Discharge Disposition: Home or Self Care 12/25/2024 9:45 AM EDT Office Visit Adult Medicine [address] [phone] Jane Amador PA Acute pain of right knee (Primary Dx); History of gestational diabetes 12/24/2024 Telephone Adult Medicine [address] [phone] Jane Amador PA from Last 3 Months Immunizations Name Administration Dates Next Due Influenza trivalent, with pr eservative (Fluzone; Afluria) 6mo and older 06/26/2012 Tdap Tetanus diptheria acell ular pertussis (Boostrix; Adacel) 7yo and older 08/14/2020 Surgical History Surgery Date Site/Laterality Comments CHOLECYSTECTOMY ESOPHAGOGASTRODUODENOSCOPY 2012 : normal Medical History Medical History Date Comments Wheezing 05/21/2011 Fatty liver disease, nonalcoholic 11/04/2011 Family History Medical History Relation Name Comments Other: ?heart problems Father Stomach cancer Maternal Grandmother Hypertension Mother hemachomatosis, carrier muscular dystrophy; lung cancer Other: muscular dystrophy Other ne phew Relation Name Status Comments Father Maternal Grandmother Mother Other Social History Tobacco Use Types Packs/Day Years Used Date Smoking Tobacco: Every Day Cigarettes Smokeless Tobacco: Never Tobacco Cessation:Ready to Q uit: Not Asked; Counseling Given: Not Answered Alcohol Use Standard Drinks/Week Comments No 0 (1 standard drink = 0.6 oz pur e alcohol) Comments No Sex and Gender Information Value Date Recorded Sex Assigned at Female 07/18/2024 11:19 AM EST Legal Sex Female 9:48 PM EST Gender Identity Female 07/18/2024 11:19 AM EST Sexual Orientation Not on file Obstetrics History Last Filed Vital Signs Vital Sign Reading Time Taken Comments Blood Pressure 97/69 12/25/2024 9:44 AM EDT Pulse 91 12/25/2024 9:44 AM EDT Temperature 36 C (96.8 F) 12/25/2024 9:44 AM EDT Respiratory Rate 14 12/25/2024 9:44 AM EDT Oxygen Saturation 97% 12/25/2024 9:44 AM EDT Inhaled Oxygen Concentration - - Weight 75.8 kg (167 lb) 12/25/2024 9:44 AM EDT Height 157.5 cm (5' 2 ) 12/25/2024 9:44 AM EDT Body Mass Index 30.54 12/25/2024 9:44 AM EDT Plan of Treatment Health Maintenance Due Date Last Done Comments Breast Cancer Screening 1978 Hepatitis B Vaccines (1 of 3 - 19+ 3-dose series) 1997 Pneumococcal Vaccine: Pediat rics (0 to 5 Years) and At-Risk Patients (6 to 49 Years) (1 of 2 - PCV) 1997 Cervical Cancer Screening: P ap Smear 04/13/2013 04/13/2010 Colorectal Cancer Screening: Colonoscopy 05/22/2022 Hepatitis C Screening 05/22/2022 Social Influencers of Health Screening 05/22/2022 Depression Screening 06/13/2024 02/04/2023 COVID-19 Vaccine (1 - 2023-2 5 season) 2025 Influenza Vaccine (#1) 2025 06/26/2012 Cholesterol Screening (Lipid Panel) 09/28/2027 09/27/2022 DTaP,Tdap,and Td Vaccines (2 - Td or Tdap) 08/14/2030 08/14/2020 HIV Screening Completed 04/08/2010 HIB Vaccines Aged Out No longer eligi ble based on patient's age to complete this topic HPV Vaccines Aged Out No longer eligi ble based on patient's age to complete this topic Hepatitis A Vaccines Aged Out No long er eligible based on patient's age to complete this topic IPV Vaccines Aged Out No longer eligi ble based on patient's age to complete this topic MMR Vaccines Aged Out No longer eligi ble based on patient's age to complete this topic Meningococcal ACWY Vaccine Aged Out N o longer eligible based on patient's age to complete this topic Meningococcal B Vaccine Aged Out No l onger eligible based on patient's age to complete this topic RSV Immunization Patients Un dwight 20 months Aged Out No longer eligible b ased on patient's age to complete this topic Varicella Vaccines Aged Out No longer eligible based on patient's age to complete this topic Procedures Procedure Name Priority Date/Time Associated Diagnosis Comments BORRELIA BURGDORFERI ANTIBODY Routine 12/25/2024 10:40 AM EDT Tick bite, unspecified site, subsequent encounter HEMOGLOBIN A1C Routine 12/25/2024 10:40 AM EDT History of gestational diabetes COMPREHENSIVE METABOLIC PANEL Routine 12/25/2024 10:40 AM EDT History of gestational diabetes COMPLETE BLOOD COUNT Routine 12/25/2024 10:40 AM EDT History of gestational diabetes XR KNEE 4+ VIEWS RIGHT Routine 10:26 AM EDT Acute pain of right knee HM DEPRESSION SCREENING Routine 02/04/2023 LIPID PANEL Routine 09/27/2022 HM PAP SMEAR Routine 04/13/2010 HIV SCREENING Routine 04/08/2010 from Last 3 Months or Most Recently Relevant to Health Maintenance Results * Borrelia burgdorferi antibody (12/25/2024 10:40 AM EDT) Lyme Ab Negative Negative LAB CHEMISTRY METHOD 12/26/2024 9:35 AM EDT [facility] Comment: No laboratory evidence of infection with B. burgdorferi (Lyme disease). Negative results may occur in patients recently infected (<=14 days) with B. burgdorferi. If recent infection is suspected, repeat testing on a new sample collected in 7- 14 days is recommended. Blood Venous blood specimen / Unknown Venipuncture / Unknown 12/25/2024 10:40 AM EDT 12/25/2024 10:40 AM EDT us Bethany Moise MD LAB BLOOD ORDERABLES Final Resul t [facility] [address] [place] [address], * (ABNORMAL) Complete blood count (12/25/2024 10:40 AM EDT) [facility] WBC 11.7(H) 4.8 - 10.8 K/mcL LAB HEMETOLOGY METHOD 12/25/2024 12:34 PM EDT [facility] RBC 4.70 3.80 - 4.80 M/mcL LAB HEMETOLOGY METHOD 12/25/2024 12:34 PM EDT [facility] Hemoglobin 14.0 11.5 - 16.0 g/dL LAB HEMETOLOGY METHOD 12/25[facility]2024 12:[facility] Hematocrit 43.8 35.0 - 47.0 % LAB HEMETOLOGY METHOD 12/25/2024 12:34 [facility] MCV 92.8 79.0 - 98.0 FL LAB HEMETOLOGY METHOD 12/25/2024 12:34 PM EDT [facility] MCH 29.7 27.0 - 32.0 pcg LAB HEMETOLOGY METHOD 12/25/2024 12:34 PM [facility] MCHC 32.0 32.0 - 37.0 g/dL LAB HEMETOLOGY METHOD 12/25/2024 12:34 [facility] RDW 12.5 11.0 - 15.0 % LAB HEMETOLOGY METHOD 12/25/2024 12:34 PM EDT [facility] Platelets 338 130 - 400 K/mcL LAB HEMETOLOGY METHOD 12/25/2024 12:34 [facility] MPV 9.8 7.0 - 11.0 FL LAB HEMETOLOGY METHOD 12/25/2024 12:34 PM EDT [facility] NRBC 0.0 <1.0 % LAB HEMETOLOGY METHOD 12/25/2024 12:34 PM EDT [facility] NRBC Absolute 0.00 <0.10 K/mcL LAB HEMETOLOGY METHOD 12/25/2024 12:34 PM EDT [facility] Blood Venous blood specimen / Unknown Venipuncture / Unknown 12/25/2024 10:40 AM EDT 12/25/2024 10:40 AM EDT us Jane LEVY LAB BLOOD ORDERABLES Final Re sult Performing Organization Address [facility] [address]/ZIP Co de Phone Number [facility] [address] [place] [address], [place] [phone] * Hemoglobin A1c (12/25/2024 10:40 AM EDT) Pathologist [facility] Hemoglobin A1C 6.0 <6.5 % LAB CHEMISTRY METHOD 12/25/2024 10:37 PM EDT [facility] Mean Bld Glu Estim. 126 mg/dL LAB CHEMISTRY METHOD 12/25/2024 10:37 PM EDT [facility] Blood Venous blood specimen / Unknown Venipuncture / Unknown 12/25/2024 10:40 AM EDT 12/25/2024 10:40 AM EDT us Jane LEVY LAB BLOOD ORDERABLES Final Re sult Performing Organization Address [facility] [address]/ZIP Co de Phone Number [facility] [address] [place] [address], [place] [phone] * (ABNORMAL) Comprehensive metabolic panel (12/25/2024 10:40 AM EDT) Pathologist [facility] Sodium 141 133 - 145 mmol/L LAB CHEMISTRY METHOD 12/25/2024 1:07 PM EDT [facility] Potassium 4.1 3.5 - 5.5 mmol/L LAB CHEMISTRY METHOD 12/25/2024 1:07 PM EDT [facility] Chloride 109 96 - 110 mmol/L LAB CHEMISTRY METHOD 12/25/2024 1:07 PM [facility] CO2 27 21 - 32 mmol/L LAB CHEMISTRY METHOD 12/25/2024 1:07 PM [facility] Anion Gap 5 3 - 11 LAB CHEMISTRY METHOD 12/25/2024 1:07 PM [facility] Glucose 76 70 - 100 mg/dL LAB CHEMISTRY METHOD 12/25/2024 1:07 PM [facility] BUN 17 5 - 25 mg/dL LAB CHEMISTRY METHOD 12/25/2024 1:07 PM [facility] Creatinine 0.85 0.50 - 1.10 mg/dL LAB CHEMISTRY METHOD 12/25/2024 1:07 PM [facility] eGFR 86 >=60 mL/min/1. 73m2 LAB CHEMISTRY METHOD 12/25/2024 1:07 PM [facility] Comment:Calculation based on the Chronic Kidney Disease Epidemiology Collaboration (CKD-EPI) equation refit without adjustment for race. BUN/Creatinine Ratio 20.0 LAB CHEMISTRY METHOD 12/25/2024 1:07 PM [facility] Calcium 8.9 8.5 - 10.5 mg/dL LAB CHEMISTRY METHOD 12/25/2024 1:07 [facility] AST (SGOT) 14 10 - 42 unit/L LAB CHEMISTRY METHOD 12/25/2024 1:07 [facility] ALT (SGPT) 30 10 - 60 unit/L LAB CHEMISTRY METHOD 12/25/2024 1:07 PM [facility] Alkaline Phosphatase 144(H) 42 - 121 unit/L LAB CHEMISTRY METHOD 12/25/2024 1:07 PM [facility] Total Protein 5.8(L) 6.0 - 8.0 g/dL LAB CHEMISTRY METHOD 12/25/2024 1:07 PM EDT [facility] Albumin 3.3 3.2 - 5.0 g/dL LAB CHEMISTRY METHOD 12/25/2024 1:07 PM EDT [facility] Total Bilirubin 0.3 0.0 - 1.4 mg/dL LAB CHEMISTRY METHOD 12/25/2024 1:07 PM EDT [facility] Blood Venous blood specimen / Unknown Venipuncture / Unknown 12/25/2024 10:40 AM EDT 12/25/2024 10:40 AM EDT us Jane LEVY LAB BLOOD ORDERABLES Final Re sult [facility] [address] [place] [address], [place] [phone] * XR Knee 4+ Views Right (12/25/2024 10:26 AM EDT) Anatomical Region Laterality Modality Lower Extremities, Knee Right Radiogra phic Imaging 12/25/2024 8:17 PM EDT Impressions 12/25/2024 8:21 PM EDT No acute fracture detected. Minimal degenerative changes at the patellofemoral joint. POS - [id number] -------- FINAL REPORT -------- Dictated By: Jazmine Aj Dictated Date: 12/25/2024 20:17 ET Assigned Physician: Jazmine Aj Reviewed and Electronically Signed By: Jazmine Aj Signed Date: 12/25/2024 20:21 ET Workstation ID: [id number] Transcribed By: Self Edit Transcribed Date: 12/25/2024 20:17 ET Narrative 12/25/2024 8:21 PM EDT EXAM: Right knee x-ray HISTORY: Acute right knee pain. COMPARISON: None VIEWS: 6 views performed. FINDINGS: No acute fracture or malalignment detected. Tricompartment joint spaces are preserved. Minimal spurring at the patellofemoral joint. No destructive bone lesion. Trace joint effusion without evidence of lipohemarthrosis. Procedure Note Jazmine Aj MD - 12/25/2024 EXAM: Right knee x-ray HISTORY: Acute right knee pain. COMPARISON: None VIEWS: 6 views performed. FINDINGS: No acute fracture or malalignment detected. Tricompartment joint spacesare preserved. Minimal spurring at the patellofemoral joint. Nodestructive bone lesion. Trace joint effusion without evidence oflipohemarthrosis. IMPRESSION: No acute fracture detected. Minimal degenerative changes at thepatellofemoral joint. POS - [id number] -------- FINAL REPORT -------- Dictated By: Jazmine Aj Dictated Date: 12/25/2024 20:17 ET Assigned Physician: Jazmine Aj Reviewed and Electronically Signed By: Jazmine Aj Signed Date: 12/25/2024 20:21 ET Workstation ID: [id number] Transcribed By: Self Edit Transcribed Date: 12/25/2024 20:17 ET Jane LEVY IMG XR PROCEDURES Final Resul t * Depression Screening (02/04/2023) [facility] Depression Screening abstracted Result [facility] Provider HEALTH MAINTENANCE Final Result * (ABNORMAL) Lipid panel (09/27/2022) [facility] LDL/HDL Ratio 5(A) 0 - 4 Triglycerides 139 0 - 150 mg/dL Cholesterol 187 0 - 200 mg/dL HDL 42 >=40 mg/dL LDL Cholesterol 118(A) 0 - 100 mg/dL Blood Venous blood specimen / Unknown Result [facility] Provider LAB BLOOD ORDERABLES Purnima l Result * Pap Smear (04/13/2010) [facility] Pap smear abstracted, no interpretation Result [facility] Provider HEALTH MAINTENANCE Final Result * HIV Screening (04/08/2010) [facility] HIV Screening abstracted Result [facility] Provider HEALTH MAINTENANCE Final Result from Last 3 Months or Most Recently Relevant to Health Maintenance Insurance [facility] Care Teams Chemical Radiation Technician Relationship Specialty Start Date End Date Bethany Moise MD [address] [place] [phone] PCP - General 10/06/05
[2025-03-01 09:33] VITALS: BP 137/89; PULSE 98; RESP 16; TEMP 36.2; O2SAT 97
[2025-03-01 09:35] LABS: IDNOW Serial# 16C4AD1C; Strep A Nucleic Acid Negative (Negative)
[2025-03-01 09:37] LABS: IDNOW Serial# 58CA691E
[2025-03-01 09:38] LABS: Influenza B2 Negative (Negative)
[2025-03-01 09:40] LABS: COVID-19 Test Negative (Negative); IDNOW Serial# 08D9AD1C
== END 2025-03-01 10:35 | disposition home or self-care (01) ==
PROVIDERS: Emergency Provider Emergency Medicine; PCP Internal Medicine
DX: M25.561 Pain in right knee (principal); R07.89 Other chest pain; M54.50 Low back pain, unspecified; R05.9 Cough, unspecified; Z11.52 Encounter for screening for COVID-19; Z79.899 Other long term (current) drug therapy
CPT/HCPCS: 71046; 73560; 87502; 87635; 87651; 96372; 99283; 99284; J1885

== ENCOUNTER → 2025-03-01 07:24 | Outpatient (BNV) | payer OTHER, SELFPAY | PROVIDERS: Emergency Provider Emergency Medicine; PCP Internal Medicine; Visit Provider Radiology Diagnostic Radiology | DX: R05.9 Cough, unspecified (principal); M25.561 Pain in right knee | CPT/HCPCS: 71046; 73560 ==

== ENCOUNTER 2025-04-01 02:37 | Emergency (ER) | payer OTHER, SELFPAY ==
[2025-04-01 02:38] VITALS: BP 123/77; PULSE 108; RESP 20; TEMP 36.8; O2SAT 98; BMI 30.2
--- OUTSIDE RECORDS SUMMARY | 2025-04-01 03:11 | XMS_ITS | Encounter Summary ---
Author Organization [facility] Address [address] [place] [address] Care Team Providers Care Label Stitcher Name Role Phone Bethany Moise MD Primary Care Provider Encounter Details Date Type Department Care Team (Late st Contact Info) Description 10/08/2024 Nurse Triage Adult Medicine [address] [phone] Jayde Chew, RN Social History Tobacco Use [...] was negative Protocols used: Cough - Acute [id number] documented in this encounter Plan of Treatment Upcoming Encounters Date Type Department Care Team (Late st Contact Info) Description 04/01/2025 1:00 PM EDT Consult Orthopedic Surgery - [place] [address] [facility] [address] [place] [phone] Josephine Gibson MD 175 [facility] [address] [place] [address] documented as of this encounter Visit Diagnoses Not on filedocumented in this encounter Care Teams Label Stitcher Relationship Specialty Start Date End Date Bethany Moise MD [address] [place] [phone] PCP - General 10/06/05 documented as of this encounter
--- OUTSIDE RECORDS SUMMARY | 2025-04-01 03:11 | XMS_ITS | Clinical Summary ---
Author Organization [facility] [address] [place] [address] [place] [phone] Phone Care Team Providers Care Seamless Hosiery Knitter Name Role Phone Bethany Moise MD Primary Care Provider [phone] Allergies Active Allergy Reactions Criticality Noted Date [...] disease 03/28/2018 Fatty liver disease, nonalcoholic 11/04/2011 Immunizations Immunization Administration Dates Next Due Influenza trivalent, with pr eservative (Fluzone; Afluria) 6mo and older 06/26/2012 Tdap Tetanus diptheria acell ular pertussis (Boostrix; Adacel) 7yo and older 08/14/2020 Surgical History Surgery Date Site/Laterality Comments CHOLECYSTECTOMY ESOPHAGOGASTRODUODENOSCOPY 2013 : normal Medical History Medical History Date [...] 12/25/2024 9:44 AM EDT Plan of Treatment Upcoming Encounters Date Type Department Care Team ([facility] st Contact Info) Description 04/01/2025 1:00 PM EDT Consult Orthopedic Surgery - [place] [address] [phone] Josephine Gibson MD [address] [phone] Health Maintenance Due Date Last Done Comments Breast Cancer Screening 1978 Colorectal Cancer Screening: Colonoscopy 1978 Hepatitis B Vaccines (1 of 3 - 19+ 3-dose series) 1997 Pneumococcal Vaccine: Pediat rics (0 to 5 Years) and At-Risk Patients (6 to 49 Years) (1 of 2 - PCV) 1997 Cervical Cancer Screening: P ap Smear 04/13/2013 04/13/2010 Hepatitis C Screening 05/22/2022 Social Influencers of Health Screening 05/22/2022 Depression Screening 06/13/2024 02/04/2023 COVID-19 Vaccine (1 - 2023-2 5 season) 2025 Influenza Vaccine (#1) 2025 06/26/2012 Cholesterol Screening (Lipid Panel) 09/28/2027 09/27/2022 DTaP,Tdap,and Td Vaccines (2 - Td or Tdap) 08/14/2030 08/14/2020 RSV Immunization Adult Patie nts (1 - 1-dose 75+ series) 2053 HIV Screening Completed 04/08/2010 HIB Vaccines Aged [...] Procedure Name Priority Date/Time Associated Diagnosis Comments HM DEPRESSION SCREENING Routine 02/04/2023 LIPID PANEL Routine 09/27/2022 HM PAP SMEAR Routine 04/13/2010 HIV SCREENING Routine 04/08/2010 from Last 3 Months or Most Recently Relevant to Health Maintenance Results * Depression Screening (02/04/2023) Pathologist [facility] Depression Screening abstracted [facility] Provider HEALTH MAINTENANCE Final Result * (ABNORMAL) Lipid panel (09/27/2022) [facility] LDL/HDL Ratio 5(A) 0 - 4 Triglycerides 139 0 - 150 mg/dL Cholesterol 187 0 - 200 mg/dL HDL 42 >=40 mg/dL LDL Cholesterol 118(A) 0 - 100 mg/dL Blood Venous blood specimen / Unknown Result [facility] Provider LAB BLOOD ORDERABLES Purnima l Result * Pap Smear (04/13/2010) [facility] Pap smear abstracted, no interpretation [facility] Provider HEALTH MAINTENANCE Final Result * HIV Screening (04/08/2010) [facility] HIV Screening abstracted [facility] Provider HEALTH MAINTENANCE Final Result from Last 3 Months or Most Recently Relevant to Health Maintenance Insurance [facility] [employer] Care Teams Seamless Hosiery Knitter Relationship Specialty Start Date End Date Bethany Moise MD [address] [place] [phone] [facility] - General 10/06/05
--- NOTE | 2025-04-01 03:37 | ED.ANIMALBIT ---
HPI - Animal Bite General Chief Complaint: Animal Bite Stated Complaint: arm and leg dog bite Time Seen by Provider: 04/01/25 03:24 Source: patient Mode of arrival: ambulatory Limitations: no limitations History of Present Illness ED Provider: Pancho LEVY HPI narrative: The patient is a 44-year-old female presenting to the ED reporting just prior to arrival she was dropping off her friend at her friend's house when her friend's dog attempted to attack her dog that was in the car with them. The patient reports during the scuffle she was bit in the left anterior nayak by 1 of the dogs, also reports abrasions to the left elbow and additional abrasions to the left nayak. The patient reports her dog is definitely up-to-date on vaccinations and she believes the other dog is up-to-date, her friend's center a picture of a rabies tag however there was no name on the tag and it was not on the dog's collar. The patient does report the other dog was not acting abnormally aggressively towards her, only towards her dog. The patient is friends with the other dog's van owner operator and the dog can be monitored for the next 10 days. The patient reports she believes her last tetanus shot was within the last 5 years, reports it is on file here at [facility]. The patient did not take any medication for her symptoms prior to arrival. Related Data Previous Rx's ?Medication ?Instructions ?Recorded doxycycline monohydrate 100 mg 100 mg PO BID 10 days #20 caps 08/14/20 capsule oxycodone 5 mg capsule 5 mg PO Q8H PRN pain #7 caps 08/14/20 cephalexin 500 mg capsule 500 mg PO QID 7 days #28 caps 03/13/21 cyclobenzaprine 10 mg tablet 10 mg PO BEDTIME PRN muscle spasm 10/25/21 #10 tabs ibuprofen 600 mg tablet 600 mg PO TID PRN pain #30 tabs 10/25/21 erythromycin 5 mg/gram (0.5 %) eye 1 appl ophthalmic-Left DAILY #3.5 03/26/22 ointment grams albuterol sulfate 90 mcg/actuation 2 puff inhalation Q4-6H PRN 03/20/23 aerosol inhaler shortness of breath or wheezing #8.5 grams azithromycin 500 mg tablet 500 mg PO DAILY 5 days #5 tabs 03/20/23 (Zithromax) prednisone 20 mg tablet 20 mg PO BID #10 tabs 03/20/23 amoxicillin 875 mg-potassium 1 tab PO BID #20 tabs 04/01/25 clavulanate 125 mg tablet Allergies Allergy/AdvReac Type Severity Reaction Status Date / Time codeine (CODEINE) Allergy Unknown Hives Verified 04/01/25 02:42 Review of Systems Review of Systems: Yes all other systems are reviewed and are negative PMFSH Past Medical History Medical History No known health problems Social History Social History Patient Tobacco Use Status: Current everyday Tobacco user Advance Directives: No Advance Directives Information Provided: No Physical Exam ED Vital Signs: Vital Signs - 24 hr 04/01/25 02:38 04/01/25 03:55 04/01/25 04:02 Temperature 98.2 F 98.0 F 98.0 F Pulse Rate 108 H 98 98 Respiratory Rate 20 18 18 Blood Pressure 123/77 118/71 118/71 Pulse Oximetry 98 97 97 Oxygen Delivery Method Room Air Room Air Room Air BMI result Body Mass Index 30.2 CONSTITUTIONAL: The patient appears non-toxic, well nourished and in no acute distress. Vital signs as documented. HEAD: Atraumatic, normocephalic. EYES: EOMs grossly intact, pupils equal, conjunctiva clear, no exudate. ENT: Nares patent, no discharge. Airway patent, no audible stridor, visible mucosa is pink and moist without noted lesions. NECK: trachea is midline, no obvious masses or gross abnormalities. CHEST: Symmetric movement, normal appearance. LUNGS: Non-labored work of breathing. CARDIAC: No evidence of hypoperfusion. ABDOMEN: Nondistended, no obvious injury. : Deferred. EXTREMITIES: There are abrasions noted to the left anterior nayak and left lateral elbow, and a 4 mm puncture wound to the left anterior nayak without active bleeding. The puncture appears superficial, and does not open with manual traction. There is no bony tenderness, crepitus, or impaired or painful range of motion of the left upper and lower extremities. Distal CSM is intact, 2+ radial and DP/PT pulses on the affected side. Moves all extremities spontaneously without reported pain. No other obvious injury or deformity noted. NEURO: Alert and oriented x3, CN II-XII appear grossly intact. Cerebellar Functioning grossly intact. Speech clear and appropriate. SKIN: Warm, dry, color appropriate. No other rashes or lesions noted. Medications Administered Discontinued Medications Generic Name Dose Route Start Last Admin Trade Name Colemanq PRN Reason Stop Dose Admin Acetaminophen 975 mg 04/01/25 03:33 04/01/25 03:53 Acetaminophen 325 Mg Tablet PO 04/01/25 03:34 975 mg ONCE ONE Administration Amoxicillin/Clavulanate Potassium 875 mg 04/01/25 03:33 04/01/25 03:53 Amoxicillin/Potassium Clav 875 Mg Tablet PO 04/01/25 03:34 875 mg ONCE ONE Administration Ketorolac Tromethamine 30 mg 04/01/25 03:33 04/01/25 03:53 Ketorolac Tromethamine 30 Mg/Ml Vial IM 04/01/25 03:34 30 mg ONCE ONE Administration Medical Decision Making Medical Decision Making MDM Narrative: 3:38 AM 04/01/2025 (Pérez LEVY): The patient is a 44-year-old female presenting to the ED reporting just prior to arrival she was dropping off her friend at her friend's house when her friend's dog attempted to attack her dog that was in the car with them. The patient reports during the scuffle she was bit in the left anterior nayak by 1 of the dogs, also reports abrasions to the left elbow and additional abrasions to the left nayak. The patient reports her dog is definitely up-to-date on vaccinations and she believes the other dog is up-to-date, her friend's center a picture of a rabies tag however there was no name on the tag and it was not on the dog's collar. The patient does report the other dog was not acting abnormally aggressively towards her, only towards her dog. The patient is friends with the other dog's van owner operator and the dog can be monitored for the next 10 days. The patient reports she believes her last tetanus shot was within the last 5 years, reports it is on file here at [facility]. The patient did not take any medication for her symptoms prior to arrival. The patient's exam demonstrates abrasions to the left anterior nayak, left lateral elbow, and a 4 mm puncture wound to the left anterior nayak. There was no active bleeding. The puncture wound does not appear deep, and does not open with manual traction. There is no indication for closure of the wounds. The patient will be treated with Augmentin, chart review reveals most recent tetanus was in 2020, no indication for update. Patient's pain will be treated with anti-inflammatories and patient will be discharged with supportive care. Admission/Observation Consideration of admission/observation: Escalation of care including admission/observation considered Prescription Management I considered prescription management with: Pain Medication and Antibiotic Discharge Plan Discharge Clinical Impression: Dog bite Patient Disposition: Home, Self-Care Instructions: Animal Bite (ED) Additional Instructions: Thank you for choosing [facility]'s Emergency Department for your care today. Thankfully your examination today is reassuring. At this time there is no indication for admission to the hospital or continued ED observation, and it is safe to discharge you home. Your exam reveals no evidence of impaired range of motion or bony tenderness of your arm or leg, thus there is no indication for x-rays. Your tetanus was updated in August of 2020 and does not require updating today. Seeing as the offending animals or possibly your dog or your friend's dog, both of whom have history of rabies vaccination, can be monitored for abnormal behavior for the next 10 days, and were otherwise acting at there baseline, not abnormally aggressive, there is no indication for rabies vaccination at this time. We are treating your bites with Augmentin, please take this antibiotic as prescribed until finished. You should take alternating (staggered) doses of ibuprofen 600mg and Tylenol 1000mg every 4 hours as needed for any additional pain. Please apply bacitracin and new bandages to your abrasions and leg puncture twice daily for the next 2-3 days, after 2-3 days you may continue applying bandages but do not apply additional bacitracin in order to allow the areas to dry out and scab over. Please follow up with your primary care physician for re-evaluation, additional management of your symptoms, and continued preventative care. If you do not have a primary care physician, please call the [facility] at [phone] to establish a new primary care physician. While waiting to establish your new primary care physician, you can call our Walk[facility]in [facility] at [phone] for non-emergency needs. Please return to the emergency department if you develop a severe or sudden change in your symptoms, redness advancing quickly up your leg or arm from the bite area, whitish yellow drainage from the bites, a fever over 100.4 that does not improve with Tylenol or Ibuprofen, recurrent vomiting, or any other new or worsening symptoms or concerns. Prescriptions: New amoxicillin-pot clavulanate 875-125 mg tablet 1 tab PO BID Qty: 20 0RF No Action doxycycline monohydrate 100 mg capsule 100 mg PO BID 10 Days Qty: 20 0RF oxycodone 5 mg capsule 5 mg PO Q8H PRN (Reason: pain) Qty: 7 0RF cephalexin 500 mg capsule 500 mg PO QID 7 Days Qty: 28 0RF cyclobenzaprine 10 mg tablet 10 mg PO BEDTIME PRN (Reason: muscle spasm) Qty: 10 0RF ibuprofen 600 mg tablet 600 mg PO TID PRN (Reason: pain) Qty: 30 0RF erythromycin 5 mg/gram (0.5 %) ointment 1 appl ophthalmic-Left DAILY Qty: 3.5 0RF azithromycin [Zithromax] 500 mg tablet 500 mg PO DAILY 5 Days Qty: 5 0RF prednisone 20 mg tablet 20 mg PO BID Qty: 10 0RF albuterol sulfate 90 mcg/actuation HFA aerosol inhaler 2 puff inhalation Q4-6H PRN (Reason: shortness of breath or wheezing) Qty: 8.5 0RF Referrals: Bethany Moise MD [Primary Care Provider, Internal Medicine] Clinical Impression: Dog bite Interventions: ED Discharge Assessment Last Done: 04/01/25 04:02 Discharge Date/Time: 04/01/25 04:06 Print Language: Bulgarian
[2025-04-01 03:55] VITALS: BP 118/71; PULSE 98; RESP 18; TEMP 36.7; O2SAT 97
[2025-04-01 04:02] VITALS: BP 118/71; PULSE 98; RESP 18; TEMP 36.7; O2SAT 97
== END 2025-04-01 04:06 | disposition home or self-care (01) ==
PROVIDERS: Emergency Provider Emergency Medicine; PCP Internal Medicine
DX: S81.832A Puncture wound without foreign body, left lower leg, initial encounter (principal); S50.312A Abrasion of left elbow, initial encounter; S80.812A Abrasion, left lower leg, initial encounter; W54.0XXA Bitten by dog, initial encounter; Y93.89 Activity, other specified; Y92.89 Other specified places as the place of occurrence of the external cause; Y99.8 Other external cause status
CPT/HCPCS: 96372; 99284; J1885

== ENCOUNTER 2025-05-31 13:25 | Emergency (ER) | payer OTHER, SELFPAY ==
--- NOTE | ~2025-05-31 | XR_ITS ---
EXAMINATION: XR TIBIA AND FIBULA, RIGHT CLINICAL INFORMATION: fall off truck COMPARISON: None available. TECHNIQUE: AP and lateral views of the right tibia and fibula were obtained. FINDINGS: No acute cortical disruption. No lytic or blastic lesions. No subcutaneous emphysema. 3 mm calcification in the soft tissues plantar region at the level of the metatarsals seen on the lateral projection. XR/XR tibia fibula RT 2V IMPRESSION: No acute fracture Probable 3 m foreign body in the plantar surface of the foot.. Electronically signed by: Alexander Vital MD 05/31/2025 02:38 PM EST RP
--- NOTE | ~2025-05-31 | XR_ITS ---
EXAMINATION: XR KNEE, RIGHT CLINICAL INFORMATION: fall off truck COMPARISON: March 01, 2025 TECHNIQUE: AP oblique and lateral views. of the right knee. FINDINGS: Joint space narrowing involving the medial compartment. No acute cortical disruption or malalignment. No lytic or blastic lesions. No subcutaneous emphysema. No metallic or radiopaque foreign body. No subcutaneous emphysema. XR/XR knee RT 4V IMPRESSION: No acute fracture or dislocation. Medial compartment osteoarthrosis/osteoarthritis, mild. Electronically signed by: Alexander Vital MD 05/31/2025 02:37 PM EST
[2025-05-31 14:08] VITALS: BP 117/59; PULSE 92; RESP 18; TEMP 36.7; O2SAT 96; BMI 33.5
--- NOTE | 2025-05-31 14:08 | ED.FALL ---
HPI - Fall General Chief Complaint: Extremity Injury, Lower Stated Complaint: fall Time Seen by Provider: 05/31/25 16:56 History of Present Illness HPI Narrative: Patient is a 44-year-old female presents today with having slipped on a ladder. Subsequently twisted her right knee right leg. Complaining of pain localized to the area there is no foot pain. There is no head injury. Patient is not on blood thinners. No chest pain or shortness breath no systemic complaints. Related Data Previous Rx's ?Medication ?Instructions ?Recorded doxycycline monohydrate 100 mg 100 mg PO BID 10 days #20 caps 08/14/20 capsule oxycodone 5 mg capsule 5 mg PO Q8H PRN pain #7 caps 08/14/20 cephalexin 500 mg capsule 500 mg PO QID 7 days #28 caps 03/13/21 cyclobenzaprine 10 mg tablet 10 mg PO BEDTIME PRN muscle spasm 10/25/21 #10 tabs ibuprofen 600 mg tablet 600 mg PO TID PRN pain #30 tabs 10/25/21 erythromycin 5 mg/gram (0.5 %) eye 1 appl ophthalmic-Left DAILY #3.5 03/26/22 ointment grams albuterol sulfate 90 mcg/actuation 2 puff inhalation Q4-6H PRN 03/20/23 aerosol inhaler shortness of breath or wheezing #8.5 grams azithromycin 500 mg tablet 500 mg PO DAILY 5 days #5 tabs 03/20/23 (Zithromax) prednisone 20 mg tablet 20 mg PO BID #10 tabs 03/20/23 amoxicillin 875 mg-potassium 1 tab PO BID #20 tabs 04/01/25 clavulanate 125 mg tablet ibuprofen 400 mg tablet 400 mg PO Q6H PRN pain #20 tabs 05/31/25 Allergies Allergy/AdvReac Type Severity Reaction Status Date / Time codeine (CODEINE) Allergy Unknown Hives Verified 05/31/25 14:13 Review of Systems Review of Systems: Positive knee pain positive pain to the proximal leg Yes all other systems are reviewed and are negative PMFSH Past Medical History Attestation statement: The following information was validated with the patient. Medical History No known health problems Social History Social History Patient Tobacco Use Status: Current everyday Tobacco user Advance Directives: No Advance Directives Information Provided: No Do you have a plan to hurt others: No Plan Physical Exam Exam: Exam: Appearance: Alert. Oriented X3. No acute distress. Eyes: Pupils equal, round and reactive to light. ENT: Pharynx normal. Neck: Normal inspection. Neck supple. No lymph nodes noted. No crepitus CVS: Normal heart rate and rhythm. Pulses normal. Normal S1 and S2 Respiratory: No respiratory distress. Breath sounds normal. No Wheezing. No rales Abdomen: Soft and nontender. No rigidity. No distention. good BS x4 Skin: Skin warm and dry. Normal skin color. Normal skin turgor. Extremities: No lower extremity edema. There is no edema noted over the right knee. There is no tenderness on palpation of the patella. No tenderness on palpation medial and lateral collateral ligament. Ambulate but with a limp. There is no pain in the foot. There is no redness. There is good distal pulses skin is intact. Neuro: Oriented X 3. No motor deficit. No sensory deficit. Moving all extermities. No slurred speech Vital Signs: Vital Signs: Last Vital Signs Temp 98.0 F 05/31/25 14:08 Pulse 92 05/31/25 14:08 Resp 18 05/31/25 14:08 BP 117/59 L 05/31/25 14:08 Pulse Ox 96 05/31/25 14:08 BMI result Body Mass Index 33.5 Course Course Course Narrative: This is a Rapid Medical Exam performed in triage by Andreea Kumar PA-C. Full HPI, ROS and PE to be performed by primary ED provider. 44 yo F presenting to the ED c/o fall off back of pickup truck s/p standing on back attempting to unhook ladder that was stuck. denies head trauma or LOC PE: ambulating w/limping gait. +ttp R knee and tib fib. no deformity Plan: XR Medications Administered Discontinued Medications Generic Name Dose Route Start Last Admin Trade Name Freq PRN Reason Stop Dose Admin Acetaminophen 650 mg 05/31/25 15:29 05/31/25 15:44 Acetaminophen 325 Mg Tablet PO 05/31/25 15:30 650 mg ONCE ONE Administration Medical Decision Making Medical Decision Making [facility] Narrative: X-ray showed no acute fracture of the knee and the tib-fib area. There is a question foreign body noted by radiology's of the foot. Patient has no tenderness there no complaints there. Will give patient crutches. Have patient follow-up with orthopedics on an outpatient basis. In stable condition. Can not rule out the possibility of internal derangement of the knee. Differential Diagnosis Differential Diagnoses: The differential diagnosis associated with the presentation includes Arthritis, contusion, internal derangement of the knee, fracture Admission/Observation Consideration of admission/observation: Escalation of care including admission/observation considered Lab Data MDM Lab Attestation statement: I reviewed the patient's lab results. Independent Interpretation I performed an independent interpretation of an: Plain X-Ray (X-ray of the tib-fib x-ray of the knee were negative) Radiology Impression Discussion of test interpretation with radiology: I have reviewed the radiologist's reading. Social Determinants Patient?s care significantly limited by Social Determinants of Health including: Problems related to primary support group Discharge Plan Discharge Clinical Impression: Acute internal derangement of knee Patient Disposition: Home, Self-Care Instructions: Knee Pain (ED), Crutch Instructions (ED) Prescriptions: New ibuprofen 400 mg tablet 400 mg PO Q6H PRN (Reason: pain) Qty: 20 0RF No Action doxycycline monohydrate 100 mg capsule 100 mg PO BID 10 Days Qty: 20 0RF oxycodone 5 mg capsule 5 mg PO Q8H PRN (Reason: pain) Qty: 7 0RF cephalexin 500 mg capsule 500 mg PO QID 7 Days Qty: 28 0RF cyclobenzaprine 10 mg tablet 10 mg PO BEDTIME PRN (Reason: muscle spasm) Qty: 10 0RF ibuprofen 600 mg tablet 600 mg PO TID PRN (Reason: pain) Qty: 30 0RF erythromycin 5 mg/gram (0.5 %) ointment 1 appl ophthalmic-Left DAILY Qty: 3.5 0RF azithromycin [Zithromax] 500 mg tablet 500 mg PO DAILY 5 Days Qty: 5 0RF prednisone 20 mg tablet 20 mg PO BID Qty: 10 0RF albuterol sulfate 90 mcg/actuation HFA aerosol inhaler 2 puff inhalation Q4-6H PRN (Reason: shortness of breath or wheezing) Qty: 8.5 0RF amoxicillin-pot clavulanate 875-125 mg tablet 1 tab PO BID Qty: 20 0RF Referrals: Vargas Silveira MD [Physician, Orthopedics] - 06/04/25 Bethany Moise MD [Primary Care Provider, Internal Medicine] - 06/04/25 Print Language: Persian
--- OUTSIDE RECORDS SUMMARY | 2025-05-31 16:55 | XMS_ITS | Clinical Summary ---
Author Organization [facility] [address] [place] [address] [address] [place] [address] Phone Care Team Providers Care Master Yacht Name Role Phone Bethany Moise MD Primary Care Provider [phone] Allergies Active Allergy Reactions Criticality Noted Date Comments Codegaston Hivdixie 12/25/2009 Medications cetirizine (ZyrTEC) 10 mg [...] a day. 1 each 2 5 Active aspirin 325 mg tablet Take 1 tablet (325 mg total) by mouth 1 (one) time each day. Active diclofenac (VOLTAREN) 1 % topical gel Apply 4 g topically 4 (four) times a day. 480 g 3 5 05/01/20 25 Active Problems Problem Noted Date Diagnosed Date History of gestational diabetes 12/27/2024 Prediabetes 12/27/2024 Current every day smoker 02/09/2023 Obesity (BMI 30.0-34.9) 06/12/2019 Seasonal allergic rhinitis due to pollen 018 Reactive airway disease 03/28/2018 Fatty liver disease, nonalcoholic 11/04/2011 Encounters Date Type Department Care Team Description 04/01/2025 1:00 PM EDT Consult Orthopedic Surgery - [place] [address] [facility] [address] [place] [address] Josephine Gibson MD Chronic pain of right knee (Primary Dx) from Last 3 Months Immunizations Immunization Administration Dates Next Due Influenza [...] AM EST Sexual Orientation Not on file Last Filed Vital Signs Vital Sign Reading Time Taken Comments Blood Pressure 97/69 12/25/2024 9:44 AM EDT Pulse 91 12/25/2024 9:44 AM EDT Temperature 36 C (96.8 F) 12/25/2024 9:44 AM EDT Respiratory Rate 14 12/25/2024 9:44 AM EDT Oxygen Saturation 97% 12/25/2024 9:44 AM EDT Inhaled Oxygen Concentration - - Weight 78 kg (172 lb) 04/01/2025 1:16 PM EDT Height 157.5 cm (5' 2.01 ) 04/01/2025 1:16 PM ED T Body Mass Index 31.45 04/01/2025 1:16 PM EDT Plan of Treatment Health Maintenance Due Date Last Done Comments Breast Cancer Screening 1978 Colorectal Cancer Screening: Colonoscopy 1978 Hepatitis B Vaccines (1 of 3 - 19+ 3-dose series) 1997 Pneumococcal Vaccine: Pediat rics (0 to 5 Years) and At-Risk Patients (6 to 49 Years) (1 of 2 - PCV) 1997 Cervical Cancer Screening: P ap Smear 04/13/2013 04/13/2010 Social Influencers of Health Screening 05/22/2022 Depression Screening 06/13/2024 02/04/2023 COVID-19 Vaccine (1 - 2024-2 6 season) 2025 Influenza Vaccine (#1) 2025 06/26/2012 Cholesterol Screening (Lipid Panel) 09/28/2027 09/27/2022 DTaP,Tdap,and Td Vaccines (2 - Td or Tdap) 08/14/2030 08/14/2020 RSV Immunization Adult Patie nts (1 - 1-dose 75+ series) 2053 HIV Screening Completed 04/08/2010 Hepatitis C Screening Completed 02/27/2011 HIB Vaccines Aged Out No longer eligi [...] Procedure Name Priority Date/Time Associated Diagnosis Comments XR KNEE 3 VIEWS RIGHT Routine 04/01/2025 1:53 PM EDT Chronic pain of right knee DEPRESSION SCREENING Routine 02/04/2023 LIPID PANEL Routine 09/27/2022 HEPATITIS C SCREENING Routine 02/27/2011 PAP SMEAR Routine 04/13/2010 HIV SCREENING Routine 04/08/2010 from Last 3 Months or Most Recently Relevant to Health Maintenance Results * XR Knee 3 Views Right (04/01/2025 1:53 PM EDT) Anatomical Region Laterality Modality Lower Extremities, Knee Right Computed Radiography 04/01/2025 6:39 PM EDT Impressions 04/01/2025 6:44 PM EDT No clear source of pain identified. -------- FINAL REPORT -------- Dictated By: Jazmine Aj Dictated Date: 04/01/2025 18:39 ET Assigned Physician: Jazmine Aj Reviewed and Electronically Signed By: Jazmine Aj Signed Date: 04/01/2025 18:44 ET Workstation ID: [id number] Transcribed By: Self Edit Transcribed Date: 04/01/2025 18:39 ET Narrative 04/01/2025 6:44 PM EDT EXAM: Right knee x-ray HISTORY: Chronic right knee pain. COMPARISON: 12/25/2024 VIEWS: 3 views performed, PA view performed weightbearing. FINDINGS: Tricompartment joint spaces are maintained. No fracture or malalignment detected. No destructive bone lesion. No significant joint effusion. Procedure Note aJzmine Aj MD - 04/01/2025 EXAM: Right knee x-ray HISTORY: Chronic right knee pain. COMPARISON: 12/25/2024 VIEWS: 3 views performed, PA view performed weightbearing. FINDINGS: Tricompartment joint spaces are maintained. No fracture or malalignmentdetected. No destructive bone lesion. No significant joint effusion. IMPRESSION: No clear source of pain identified. -------- FINAL REPORT -------- Dictated By: Jazmine Aj Dictated Date: 04/01/2025 18:39 ET Assigned Physician: Jazmine Aj Reviewed and Electronically Signed By: Jazmine Aj Signed Date: 04/01/2025 18:44 ET Workstation ID: [id number] Transcribed By: Self Edit Transcribed Date: 04/01/2025 18:39 ET Result [facility] Josephine Gibson MD IMG XR PROCEDURES Final Result * Depression Screening (02/04/2023) [facility] Depression Screening abstracted Result [facility] Provider HEALTH MAINTENANCE Final Result * (ABNORMAL) Lipid panel (09/27/2022) [facility] LDL/HDL Ratio 5(A) 0 - 4 Triglycerides 139 0 - 150 mg/dL Cholesterol 187 0 - 200 mg/dL HDL 42 >=40 mg/dL LDL Cholesterol 118(A) 0 - 100 mg/dL Blood Venous blood specimen / Unknown Result [facility] Provider LAB BLOOD ORDERABLES Purnima l Result * Hepatitis C Screening (02/27/2011) [facility] Hepatitis C Screening Negative Result [facility] Provider HEALTH MAINTENANCE Final Result * Pap Smear (04/13/2010) [facility] Pap smear abstracted, no interpretation Result [facility] Provider HEALTH MAINTENANCE Final Result * HIV Screening (04/08/2010) [facility] HIV Screening abstracted Result [facility] Provider HEALTH MAINTENANCE Final Result from Last 3 Months or Most Recently Relevant to Health Maintenance Insurance [employer] Care Teams Master Yacht Relationship Specialty Start Date End Date Bethany Moise MD [address] [place] [address] PCP - General 10/06/05
--- OUTSIDE RECORDS SUMMARY | 2025-05-31 16:55 | XMS_ITS | Encounter Summary ---
Author Organization [facility] Address [address] [place] [address] Care Team Providers Care Mat Man Name Role Phone Bethany Moise MD Primary Care Provider [phone] Encounter Details Date Type Department Care Team (Late st Contact Info) Description 10/08/2024 Nurse Triage Adult Medicine [address] [id number] Jayde Chew, RN Social History Tobacco Use [...] was negative Protocols used: Cough - Acute Lecvsyijxh-C-EY documented in this encounter Plan of Treatment Not on file documented as of this encounter Visit Diagnoses Not on filedocumented in this encounter Care Teams Mat Man Relationship Specialty Start Date End Date Bethany Moise MD [address] [place] [address] PCP - General 10/06/05 documented as of this encounter
--- NOTE | 2025-05-31 17:43 | PC.NURSE ---
Assistedd to [place] with WC. bautista for short distances.
--- NOTE | 2025-05-31 18:25 | PC.NURSE ---
pt was seen by Dr Agarwal and made crutches and DC was ordered. Pt was verbally rude related to having to wait for her crutches and refused assistance to adjust to proper fir. She adjusted them herself after returning from the bathroom and was given her DC papers
[2025-05-31 18:30] VITALS: BP 00/00; PULSE 0; RESP 20; TEMP 36.7; O2SAT 0
== END 2025-05-31 19:10 | disposition home or self-care (01) ==
PROVIDERS: Emergency Provider Emergency Medicine Emergency Medical Services; PCP Internal Medicine
DX: M23.91 Unspecified internal derangement of right knee (principal); F17.210 Nicotine dependence, cigarettes, uncomplicated
CPT/HCPCS: 73564; 73590; 99283

== ENCOUNTER → 2025-05-31 14:08 | Outpatient (BNV) | payer OTHER, SELFPAY | PROVIDERS: PCP Internal Medicine; Visit Provider Radiology Diagnostic Radiology | DX: Z04.3 Encounter for examination and observation following other accident (principal); M17.11 Unilateral primary osteoarthritis, right knee | CPT/HCPCS: 73564; 73590 ==